=== PATIENT | female | born 1985 | race Caucasian/White ===

== ENCOUNTER 2018-01-21 07:09 | Emergency (ER) | payer OTHER, SELFPAY ==
[2018-01-21 07:20] VITALS: BP 163/99; PULSE 203; RESP 23; TEMP 36.7; O2SAT 100
--- NOTE | 2018-01-21 07:23 | ED.ARRPALP ---
HPI - Arrhythmia/Palpitations General Chief Complaint: Arrhythmia/Palpitations Stated Complaint: RAPID HEARTBEAT Time Seen by Provider: 01/21/18 07:16 Source: patient Mode of arrival: ambulatory Limitations: no limitations History of Present Illness HPI narrative: The patient is a 32-year-old female who presents with heart palpitations. She does have a history of anxiety but she said this is completely different. It started while she was driving she did have some chest pain when it started a little dizzy when it started but no shortness of breath. She now is feeling better. According nursing heart rate was in the 200s she bear down and heart rate has decreased to 108. She overall is feeling better. This has never happened to her in the past. Related Data Home Medications Medication Instructions Recorded Confirmed etonogestrel [Nexplanon] 68 mg INTRADERMAL #0 05/24/17 01/16/18 Previous Rx's Medication Instructions Recorded hydroxyzine pamoate 25 mg capsule 25 mg PO Q6-8H PRN #30 cap 01/16/18 sertraline 50 mg tablet 50 mg PO DAILY #30 tab 01/16/18 Allergies Allergy/AdvReac Type Severity Reaction Status Date / Time No Known Drug Allergies Allergy Verified 01/16/18 11:55 Review of Systems Review of Systems All systems reviewed & are unremarkable except as noted in HPI and below Constitutional Denies chills, Denies fever(s), Denies lethargy and Denies weakness Eyes Denies blurry vision Cardiovascular Reports as per HPI, Denies dyspnea and Denies dyspnea on exertion Respiratory Denies cough, Denies dyspnea, Denies dyspnea on exertion and Denies wheezing Gastrointestinal Gastrointestinal: Denies abdominal pain, Denies change in bowel habits, Denies diarrhea, Denies nausea and Denies vomiting Musculoskeletal Denies back pain, Denies muscle weakness, Denies numbness and Denies tingling Integumentary/Breasts Denies pruritus, Denies erythema, Denies rash and Denies wounds Neurologic Denies numbness, Denies tingling and Denies weakness Allergic/Immunologic Denies wheezing [facility] Medical History Healthy adult (Acute) Social History Smoking Status: Never smoker Exam Initial Vital Signs Initial Vital Signs: Vital Signs Temperature 98.0 F 01/21/18 07:20 Pulse Rate 203 H 01/21/18 07:20 Respiratory Rate 23 01/21/18 07:20 Blood Pressure 163/99 H 01/21/18 07:20 Pulse Oximetry 100 01/21/18 07:20 GENERAL: Well-appearing, well-nourished and in no acute distress. HEENT: Head atraumatic,EOMI, pupils reactive CARDIOVASCULAR: Regular rate and rhythm without murmurs, rubs or gallops. RESPIRATORY: Breath sounds equal bilaterally, no wheezes rales or rhonchi. ABDOMEN: Soft, nontender. Normoactive bowel sounds all 4 quadrants. No guarding or rebound. EXTREMITIES: Normal range of motion, no clubbing or edema. Neurovascularly intact NEUROLOGICAL: Alert and oriented x4.Normal gait and speech. Cranial nerves II through XII grossly intact. SKIN: Warm, dry, no laceration, no petechiae, no rashes or lesions. Course Orders Ordered: ED Orders 01/21/18 EKG-12 Lead Stat 01/21/18 07:21 Complete Blood Count AUTO DIFF Stat Comprehensive Metabolic Panel Stat Troponin & CK Cardiac Panel Stat 01/21/18 07:31 XR chest 1V Stat Discontinued Medications Sodium Chloride (Normal Saline 0.9%) 1,000 mls @ 1,000 mls/hr IV CONT VANESSA Last Admin: 01/21/18 07:39 Dose: 1,000 mls/hr Vital Signs - 8 hr 01/21/18 07:20 01/21/18 07:30 01/21/18 08:00 Temperature 98.0 F Pulse Rate 203 H 109 H 109 H Respiratory Rate 23 19 19 Blood Pressure 163/99 H Blood Pressure [Left Arm] 150/102 H 148/104 H Pulse Oximetry 100 99 97 01/21/18 08:30 Temperature Pulse Rate 104 H Respiratory Rate 19 Blood Pressure Blood Pressure [Left Arm] 153/102 H Pulse Oximetry 98 MDM - Arrhythmia/Palpitations Medical Records Attestation: I reviewed the patient's medical records. Lab Data Attestation: I reviewed the patient's lab results. Result diagrams: 01/21/18 07:21 01/21/18 07:21 Lab Results 01/21/18 01/21/18 Range/Units 07:21 07:21 WBC 8.9 (4.5-11.0) X10^3/uL RBC 5.07 (4.0-5.2) X10^6/uL Hgb 15.6 (12.0-16.0) g/dL Hct 44.5 (36-46) % MCV 87.7 (80-100) fL MCH 30.7 (26-34) PG MCHC 35.0 (30-36) % RDW 12.7 (11.6-14.8) % Plt Count 322 (150-400) X10^3/uL Neut % (Auto) 55.2 (50-75) % Lymph % (Auto) 28.9 (25-40) % [place] % (Auto) 9.3 (3-14) % Eos % (Auto) 5.5 H (2-4) % Baso % (Auto) 1.1 (0-2) % Neut # (Auto) 4900 (2677-6835) /uL Sodium 145 (137-145) mmol/L Potassium 4.0 (3.4-5.1) mmol/L Chloride 108 H (98-107) mmol/L Carbon Dioxide 22 (22-32) mmol/L BUN 9 (7-17) mg/dL Creatinine 0.70 (0.52-1.04) mg/dL Estimated GFR > 60.0 (>60) mL/min BUN/Creatinine Ratio 12.9 (6-22) Glucose 148 H (70-100) mg/dL Calcium 9.1 (8.4-10.2) mg/dL Total Bilirubin 1.1 (0.2-1.3) mg/dL AST 43 H (14-36) IU/L ALT 50 (9-52) IU/L Alkaline Phosphatase 101 (38-126) U/L Total Creatine Kinase 87 (30-135) U/L Troponin I 0.012 (0.01-0.034) ng/mL Total Protein 7.8 (6.3-8.2) g/dL Albumin 4.3 (3.5-5.0) g/dL Globulin 3.5 (1.7-4.1) g/dL Albumin/Globulin Ratio 1.2 (1.0-2.8) Imaging Data Chest x-ray: Radiologist's impression: [address] [address] XRay Report Signed Patient: Aleah Kiser MR#: [id number] : 1985 Acct:[id number] Age/Sex: 32 / F Date of Service: 01/21/18 Loc: Accession Number: [id number] Procedure: XR chest 1V Ordering Provider: Rafaela Tidwell D.O. PROCEDURE: XR CHEST 1V INDICATIONS: Chest pain. TECHNIQUE: One view of the chest was acquired. COMPARISON: None. FINDINGS: Surgical changes and devices: None. Lungs and pleura: No pleural effusions or pneumothorax. 7 mm nodular opacity projecting over the right lower lobe, between the posterior aspects of the right eighth and ninth ribs. Mediastinum: Mediastinal contours appear normal. Heart size is normal. Bones and chest wall: No suspicious bony lesions. Overlying soft tissues appear unremarkable. IMPRESSION: 7 mm nodular opacity projecting over the right lower lobe; this finding is nonspecific but may represent an early developing focus of infection, superimposed vascular structures, or a true pulmonary nodule. As no comparison imaging demonstrating this finding is available for review, recommend followup PA and lateral chest radiographs in 3 months to demonstrate stability. Dictated by: Grupo Valles M.D. on 01/21/2018 at 8:31 Approved by: Grupo Valles M.D. on 01/21/2018 at 8:40 ECG Data Attestation: I personally reviewed and interpreted this ECG as follows: Prior ECG tracings: not available for review Interpretation: Normal sinus rhythm rate 108 no ischemia MDM Narrative Medical decision making narrative: Patient has presumed SVT. Unfortunately we were not able to get her on the monitor before she converted. She is in sinus rhythm now tachycardic. Overall feeling better blood work within normal limits. Recommend she follow up with her primary care provider and possibly a crane operator cab. Discharge Plan Departure Patient Disposition: Home Clinical Impression: Nonsustained paroxysmal supraventricular tachycardia Discharge Date/Time: 01/21/18 08:46 Interventions: ED Discharge Assessment Last Done: 01/21/18 08:44 Instructions: Paroxysmal Supraventricular Tachycardia Activity Restrictions/Additional Instructions: *You have been diagnosed with supraventricular tachycardia *What to do: May require evaluation by crane operator cab please see her primary care provider about this. *Continue to take medications as directed *Follow up with your primary care provider in 2-3 days *Return to ER if you should have heart palpitations, chest pain, dizziness, shortness of breath or any new, worsening or concerning symptoms Prescriptions: No Action hydroxyzine pamoate 25 mg capsule 25 mg PO Q6-8H PRN (Reason: anxiety) Qty: 30 RF: 0 sertraline 50 mg tablet 50 mg PO DAILY Qty: 30 RF: 0 etonogestrel [Nexplanon] 68 MG implant 68 mg Intradermal Qty: 0 RF: 0 Referrals: Maia Rodrigues MD [Primary Care Provider] -
[2018-01-21 07:30] VITALS: BP 150/102; PULSE 109; RESP 19; O2SAT 99
--- NOTE | 2018-01-21 07:31 | DI.RAD.S_ITS ---
PROCEDURE: XR CHEST 1V INDICATIONS: Chest pain. TECHNIQUE: One view of the chest was acquired. COMPARISON: None. FINDINGS: Surgical changes and devices: None. Lungs and pleura: No pleural effusions or pneumothorax. 7 mm nodular opacity projecting over the right lower lobe, between the posterior aspects of the right eighth and ninth ribs. Mediastinum: Mediastinal contours appear normal. Heart size is normal. Bones and chest wall: No suspicious bony lesions. Overlying soft tissues appear unremarkable. IMPRESSION: 7 mm nodular opacity projecting over the right lower lobe; this finding is nonspecific but may represent an early developing focus of infection, superimposed vascular structures, or a true pulmonary nodule. As no comparison imaging demonstrating this finding is available for review, recommend followup PA and lateral chest radiographs in 3 months to demonstrate stability. Dictated by: Grupo Valles M.D. on 01/21/2018 at 8:31 Approved by: Grupo Valles M.D. on 01/21/2018 at 8:40
[2018-01-21] MEDS: SODIUM CHLORIDE 0.9% 1,000 ML 1000 ML IV (07:39)
[2018-01-21 07:40] LABS: Add Manual Diff / Slide Review NO; Basophils Percent Auto 1.1 % (0-2); Eosinophils Percent Auto 5.5 % (2-4); Hematocrit 44.5 % (36-46); Hemoglobin 15.6 g/dL (12.0-16.0); Lymphocytes Percent Auto 28.9 % (25-40); Mean Corpuscular Hemoglobin 30.7 PG (26-34); Mean Corpuscular Volume 87.7 fL (80-100); Monocytes Percent Auto 9.3 % (3-14); Neutrophils Absolute Auto 4900 /uL (3000-5900); Neutrophils Percent Auto 55.2 % (50-75); Platelet Count 322 X10^3/uL (150-400); Red Blood Cell Count 5.07 X10^6/uL (4.0-5.2); Red Cell Distribution Width 12.7 % (11.6-14.8); White Blood Cell Count 8.9 X10^3/uL (4.5-11.0)
[2018-01-21 07:51] LABS: Alanine Aminotransferase 50 IU/L (9-52); Albumin 4.3 g/dL (3.5-5.0); Albumin Globulin Ratio 1.2 (1.0-2.8); Alkaline Phosphatase 101 U/L (38-126); Aspartate Aminotransferase 43 IU/L (14-36); BUN Creatinine Ratio 12.9 (6-22); Bilirubin Total 1.1 mg/dL (0.2-1.3); Blood Urea Nitrogen 9 mg/dL (7-17); Calcium 9.1 mg/dL (8.4-10.2); Carbon Dioxide 22 mmol/L (22-32); Chloride 108 mmol/L (98-107); Creatine Kinase 87 U/L (30-135); Estimated Glomerular Filt Rate > 60.0 mL/min (>60); Globulin 3.5 g/dL (1.7-4.1); Glucose 148 mg/dL (70-100); HEMOLYSIS 75 (0-50); Sodium 145 mmol/L (137-145); Total Protein 7.8 g/dL (6.3-8.2)
[2018-01-21 08:00] VITALS: BP 148/104; PULSE 109; RESP 19; O2SAT 97
[2018-01-21 08:03] LABS: Troponin I 0.012 ng/mL (0.01-0.034)
[2018-01-21 08:30] VITALS: BP 153/102; PULSE 104; RESP 19; O2SAT 98
== END 2018-01-21 08:46 | disposition home or self-care (01) ==
PROVIDERS: Emergency Provider Emergency Medicine; Family Provider Family Medicine; PCP Family Medicine
DX: I47.1 Supraventricular tachycardia (principal)
CPT/HCPCS: 36591; 71045; 80053; 82550; 82553; 84484; 85025; 93005; 93010; 96360; 99283; 99285

== ENCOUNTER → 2018-01-25 08:06 | Outpatient (CLI) | payer OTHER, SELFPAY ==
--- NOTE | 2018-01-25 | DI.ECHO.S_ITS ---
[facility]---------+ [facility] +---------+ : : [address] : : : : [id number] : : : : Phone: [phone] Echocardiogram Report + + :Name: UMA ESTEBAN Study Date: 01/25/2018 Height: 62 in : :[facility] Exam Location: [facility] Weight: 238 lb : : Gender: Female BSA: 2.1 m2 : :: 1985 Age: 32 yrs BP: 148/95 mmHg: :Reason For Study: PSVT : : Performed By: Krish Martinez : :Referring: BEENA LINTON : + + Interpretation Summary The left ventricle is normal in size, wall thickness, and systolic function without any focal wall motion abnormalities with the ejection fraction visually estimated to be 60-65%. Assessment of diastolic parameters indicates normal left ventricular diastolic function and normal filling pressures. The right ventricle is normal in size and function. Pulmonary artery pressures cannot be estimated because of the lack of a measurable TR jet velocity but without IVC suggests a low right atrial pressure of 3 mm Hg. Both atria are normal in size. There is mild mitral regurgitation and mild tricuspid regurgitation but no other significant valvular heart disease. The ascending aorta is mildly enlarged. Procedure: A two-dimensional transthoracic echocardiogram with color flow and Doppler was performed. The study quality was technically adequate. There is no prior echocardiogram noted for this patient. The patient was in normal sinus rhythm during the exam. Left Ventricle: The left ventricle is normal in size, wall thickness, and systolic function without any focal wall motion abnormalities. The ejection fraction is estimated to be 60-65%. Assessment of diastolic parameters indicates normal left ventricular diastolic function and normal filling pressures. Right Ventricle: The right ventricle is normal in size and function. Atria: Both atria are normal in size. The interatrial septum is intact with no evidence for an atrial septal defect. Mitral Valve: The mitral valve leaflets appear normal. There is no evidence of stenosis, fluttering, or prolapse. There is mild mitral regurgitation. Aortic Valve: The aortic valve is trileaflet. The aortic valve opens well. No aortic regurgitation is present. Tricuspid Valve: The tricuspid valve is normal in structure and function. There is mild tricuspid regurgitation. Pulmonary artery pressures cannot be estimated because of the lack of a measurable TR jet velocity. Pulmonic Valve: The pulmonic valve is normal in structure and function. There is trace pulmonic regurgitation. There is no other significant valvular heart disease. Great Vessels: The aortic root is normal size. The ascending aorta is mildly enlarged. The pulmonary artery is normal size. The IVC is of normal diameter and collapses greater than 50% with a sniff. This suggests a low right atrial pressure of 3 mm Hg. Pericardium/ Pleura There is no pericardial effusion. There is no pleural effusion. MMode/2D Measurements & Calculations LVIDd: 4.4 cm Ao root diam: 2.7 cm LVIDs: 2.7 cm Aortic Jxn: 2.0 cm FS: 39.4 % asc Aorta Diam: 3.5 cm EPSS: 0.27 cm Ao Arch Diam (Prox Trans): 2.8 cm IVSd: 1.1 cm LVPWd: 1.0 cm LV alejo. diameter/BSA (cm/m^2): 2.1 LV sys. diameter/BSA (cm/m^2): 1.3 LA dimension: 3.2 cm RA long axis: 5.5 cm LA A2 area: 17.8 cm2 RA area: 16.0 cm2 LA A4 area: 21.6 cm2 RA vol: 39.8 ml LA length (vol): 5.5 cm RA : 19.4 ml/m2 LA vol: 59.3 ml IVC diam: 1.6 cm LA vol index: 28.8 ml/m2 Doppler Measurements & Calculations Ao V2 max: 139.6 cm/sec LVOT Max Dante: 95.7 cm/sec Ao V2 mean: 102.7 cm/sec LV V1 max P.7 mmHg Ao max P.8 mmHg LV V1 VTI: 19.9 cm Ao mean P.5 mmHg sev ratio: 0.70 Ao V2 VTI: 28.5 cm MV E max dante: 83.6 cm/sec PA V2 max: 83.0 cm/sec MV A max dante: 53.7 cm/sec PA V2 mean: 63.3 cm/sec MV E/A: 1.6 PA mean P.7 mmHg Med Peak E' Dante: 5.7 cm/sec PA pr(Accel): 49.1 mmHg E/E' med: 14.7 PA Accel Time: 0.06 sec Lat Peak E' Dante: 9.0 cm/sec E/E' lat: 9.3 E/e' average: 12.0 MV dec time: 0.22 sec Pulm A Revs Dante: 20.9 cm/sec Reading Physician:GLORIA
== END ==
PROVIDERS: Family Provider Family Medicine; PCP Family Medicine; Visit Provider Family Medicine
DX: I08.1 Rheumatic disorders of both mitral and tricuspid valves (principal); I47.1 Supraventricular tachycardia
CPT/HCPCS: 93306

== ENCOUNTER → 2018-11-12 16:54 | Outpatient (CLI) | payer OTHER, SELFPAY ==
[2018-11-12 17:46] LABS: HEMOLYSIS < 15 (0-50)
== END ==
PROVIDERS: PCP Family Medicine; Visit Provider Physician Assistant
DX: L70.0 Acne vulgaris (principal)
CPT/HCPCS: 36415; 84132

== ENCOUNTER 2019-07-30 17:22 | Emergency (ER) | payer OTHER, SELFPAY ==
[2019-07-30 17:31] VITALS: BP 148/100; PULSE 111; RESP 24; TEMP 37.2; O2SAT 98
[2019-07-30 17:50] LABS: Add Manual Diff / Slide Review NO; Basophils Absolute Auto 100 /uL (0-100); Basophils Percent Auto 0.7 % (0-2); Eosinophils Absolute Auto 300 /uL (0-450); Eosinophils Percent Auto 1.9 % (2-4); Hematocrit 45.6 % (36-46); Hemoglobin 15.5 g/dL (12.0-16.0); Lymphocytes Absolute Auto 2200 /uL (1100-4500); Lymphocytes Percent Auto 15.2 % (25-40); Mean Corpuscular HGB Conc 34.1 % (30-36); Mean Corpuscular Hemoglobin 30.6 PG (26-34); Mean Corpuscular Volume 89.6 fL (80-100); Monocytes Absolute Auto 1200 /uL (0-900); Monocytes Percent Auto 8.3 % (3-14); Neutrophils Absolute Auto 10900 /uL (1500-7000); Neutrophils Percent Auto 73.9 % (50-75); Platelet Count 354 X10^3/uL (150-400); Red Blood Cell Count 5.09 X10^6/uL (4.0-5.2); Red Cell Distribution Width 12.6 % (11.6-14.8); White Blood Cell Count 14.7 X10^3/uL (4.5-11.0)
[2019-07-30 18:10] LABS: Alanine Aminotransferase 37 IU/L (<35); Albumin Globulin Ratio 1.3 (1.0-2.8); Alkaline Phosphatase 118 U/L (38-126); Aspartate Aminotransferase 36 IU/L (14-36); Bilirubin Total 0.6 mg/dL (0.2-1.3); Blood Urea Nitrogen 9 mg/dL (7-17); Calcium 9.9 mg/dL (8.4-10.2); Carbon Dioxide 26 mmol/L (22-32); Chloride 101 mmol/L (98-107); Estimated Glomerular Filt Rate > 60.0 mL/min (>60); Globulin 3.9 g/dL (1.7-4.1); Glucose 123 mg/dL (70-100); HEMOLYSIS < 15 (0-50); Potassium 3.7 mmol/L (3.4-5.1); Sodium 141 mmol/L (137-145); Total Protein 8.9 g/dL (6.3-8.2)
--- NOTE | 2019-07-30 18:11 | ED.DIZZY ---
HPI - Dizziness General Chief Complaint: Dizziness Stated Complaint: wierd stuff going on Time Seen by Provider: 07/30/19 17:38 Source: patient Mode of arrival: Ambulatory Limitations: no limitations History of Present Illness HPI Narrative: 34F nonsmoker with migraines presents due to a sudden onset of feeling ?weird? about 5 hours prior to her arrival. She states she felt some palpitations and a bit lightheaded but is very nondescript regarding other symptoms. Patient denies any runny nose, sore throat or cough. She denies any fever or chills. She denies nausea, vomiting or diarrhea. She is a bit lightheaded on occasion. She denies any dysuria, frequency or urgency. She has had no abnormal vaginal bleeding or discharge. She denies recent travel, pain or swelling in her lower extremities or history of blood clot. MD complaint: dizziness and lightheadedness Onset (ago): hour(s) Timing: sudden onset History of similar episodes: Yes History of trauma: No Severity: mild Relieving factors: nothing Exacerbating factors: nothing Related Data Home Medications Medication Instructions Recorded Confirmed Nexplanon 68 mg INTRADERMAL .ONCE #0 05/24/17 07/30/19 spironolactone 25 mg tablet 25 mg PO BID 03/27/19 07/30/19 fluoxetine 20 mg PO QPM 07/30/19 07/30/19 Previous Rx's Medication Instructions Recorded dihydroergotamine 0.5 mg/pump act. 1 spray NASAL Q15M #8 ml 03/27/19 (4 mg/mL) nasal spray nortriptyline 50 mg capsule 50 mg PO BEDTIME #30 cap 05/06/19 fremanezumab-vfrm 225 mg/1.5 mL 225 mg SUBCUT QMONTH #1.5 ml 07/22/19 subcutaneous syringe propranolol 60 mg capsule,24 60 mg PO DAILY #30 cap 07/22/19 hr,extended release Allergies Allergy/AdvReac Type Severity Reaction Status Date / Time No Known Drug Allergies Allergy Verified 07/22/19 16:01 Review of Systems Constitutional Constitutional: Denies chills, Denies fatigue, Denies fever(s), Denies frequent falls, Denies lethargy and Denies weakness Eyes Eyes: Denies change in vision, Denies eye discharge, Denies irritation and Denies loss of vision ENT Ears, Nose, Mouth, and Throat: Denies change in voice, Denies dizziness, Denies neck pain, Denies sore throat and Denies throat swelling Cardiovascular Cardiovascular: Denies chest pain, Denies irregular heart rhythm, Reports lightheadedness, Reports palpitations, Denies dyspnea, Denies dyspnea on exertion and Denies orthopnea Respiratory Respiratory: Denies cough, Denies dyspnea, Denies dyspnea on exertion and Denies wheezing Gastrointestinal Gastrointestinal: Denies abdominal pain, Denies change in bowel habits, Denies diarrhea, Denies nausea and Denies vomiting Genitourinary Genitourinary: Denies hematuria, Denies flank pain, Denies urinary incontinence and Denies urinary urgency Musculoskeletal Musculoskeletal: Denies back pain, Denies muscle weakness, Denies neck pain, Denies numbness and Denies tingling Integumentary/Breasts Skin/Breast: Denies pruritus, Denies erythema, Denies rash and Denies wounds Neurologic Neurologic: Denies behavioral changes, Denies confusion, Denies dizziness, Denies frequent falls, Denies loss of vision, Denies numbness, Denies tingling and Denies weakness Psychiatric Psychiatric: Denies anxiety, Denies behavioral changes, Denies confusion, Denies depression, Denies homicidal ideation and Denies suicidal ideation Endocrine Endocrine: Denies fatigue, Denies flushing and Reports palpitations Hematologic/Lymphatic Hematologic/Lymphatic: Denies easy bruising Allergic/Immunologic Allergic/Immunologic: Denies urticaria, Denies throat swelling and Denies wheezing Patient History Medical History Healthy adult (Acute) Surgical History No pertinent past surgical history (Acute) Family History Father Hypertension Hyperlipidemia Diabetes mellitus Father Diabetes mellitus Hyperlipidemia Hypertension Social History Smoking Status: Never smoker Smoking Status: Never smoker alcohol intake frequency: 0-2 drinks per day Substance Use Type: does not use Exam Narrative Exam Narrative: GENERAL: [Is a 34] year old patient appears stated age. Well-nourished, well-developed patient, in mild distress. HEAD: Atraumatic. Normocephalic. EYES: Pupils equal round and reactive. Extraocular motions intact. No scleral icterus. No injection or drainage. ENT: Nose without bleeding, purulent drainage. Throat without erythema, tonsillar hypertrophy or exudate. Airway patent. NECK: Trachea midline. Non tender CARDIOVASCULAR: Regular rate and rhythm without murmurs, gallops, or rubs. RESPIRATORY: Clear to auscultation. Breath sounds equal bilaterally. No wheezes, rales, or rhonchi. GASTROINTESTINAL: Abdomen soft, non-tender, nondistended. EXTREMITIES: No edema or joint tenderness. BACK: Nontender without deformity or crepitance. No flank tenderness. NEURO: AOx3. SKIN: No rash or erythema of visible areas Initial Vital Signs Initial Vital Signs: Vital Signs Temperature 98.9 F 07/30/19 17:31 Pulse Rate 111 H 07/30/19 17:31 Respiratory Rate 24 07/30/19 17:31 Blood Pressure 148/100 H 07/30/19 17:31 Pulse Oximetry 98 07/30/19 17:31 Course Course Course Narrative: Patient feeling much better after the above-stated therapies. Her vital signs have normalized and she feels tremendous improvement. Multiple etiologies considered including PE, tachyarrhythmia and thyroid trouble considered, but thought less likely given the lack of lab findings. Orders Ordered: ED Orders 07/30/19 17:35 D Dimer Stat EKG-12 Lead Stat 07/30/19 17:39 Complete Blood Count AUTO DIFF Stat Comprehensive Metabolic Panel Stat Procalcitonin Stat Thyroid Stimulating Hormone Stat 07/30/19 21:25 Ictotest Urine Stat Urine Culture Stat Urine Drug Screen, Rapid Stat Urine Microscopic Stat Discontinued Medications Sodium Chloride (Normal Saline 0.9%) 1,000 mls @ 1,000 mls/hr IV BOLUS ONE Stop: 07/30/19 18:35 Last Infusion: 07/30/19 19:23 Dose: 1,000 mls/hr Documented by: Admin: 07/30/19 18:18 Dose: 1,000 mls/hr Documented by: HEMANT Sodium Chloride (Normal Saline 0.9%) 1,000 mls @ 1,000 mls/hr IV BOLUS ONE Stop: 07/30/19 21:09 Last Admin: 07/30/19 22:58 Dose: Not Given Documented by: KELSEY Ondansetron HCl (Zofran) 4 mg IV NOW ONE Stop: 07/30/19 17:36 Last Admin: 07/30/19 18:18 Dose: 4 mg Documented by: HEMANT Vital Signs Vital signs: Vital Signs - 8 hr 07/30/19 18:33 07/30/19 19:53 07/30/19 20:06 Pulse Rate 93 H 94 H Pulse Rate [Orthostatic Lying] 98 H Pulse Rate [Orthostatic Sitting] 86 Pulse Rate [Orthostatic Standing] 96 H Respiratory Rate 12 18 Blood Pressure Blood Pressure [Left Arm] 128/77 124/77 Blood Pressure [Orthostatic Lying] 120/73 Blood Pressure [Orthostatic Sitting] 127/82 Blood Pressure [Orthostatic Standing] 119/96 H Pulse Oximetry 99 100 07/30/19 21:24 07/30/19 23:06 Pulse Rate 87 88 Pulse Rate [Orthostatic Lying] Pulse Rate [Orthostatic Sitting] Pulse Rate [Orthostatic Standing] Respiratory Rate 23 22 Blood Pressure 124/76 Blood Pressure [Left Arm] Blood Pressure [Orthostatic Lying] Blood Pressure [Orthostatic Sitting] Blood Pressure [Orthostatic Standing] Pulse Oximetry 100 100 MDM - Dizziness Lab Data Result diagrams: 07/30/19 17:39 07/30/19 17:39 Labs: Lab Results 07/30/19 07/30/19 07/30/19 Range/Units 17:35 17:39 17:39 WBC 14.7 H (4.5-11.0) X10^3/uL RBC 5.09 (4.0-5.2) X10^6/uL Hgb 15.5 (12.0-16.0) g/dL Hct 45.6 (36-46) % MCV 89.6 (80-100) fL MCH 30.6 (26-34) PG MCHC 34.1 (30-36) % RDW 12.6 (11.6-14.8) % Plt Count 354 (150-400) X10^3/uL Neut % (Auto) 73.9 (50-75) % Lymph % (Auto) 15.2 L (25-40) % [place] % (Auto) 8.3 (3-14) % Eos % (Auto) 1.9 L (2-4) % Baso % (Auto) 0.7 (0-2) % Neut # (Auto) 24309 H (5156-4895) /uL Lymph # (Auto) 2200 (4155-9324) /uL [place] # (Auto) 1200 H (0-900) /uL Eos # (Auto) 300 (0-450) /uL Baso # (Auto) 100 (0-100) /uL D-Dimer < 200 (<230) ng/mL Sodium 141 (137-145) mmol/L Potassium 3.7 (3.4-5.1) mmol/L Chloride 101 (98-107) mmol/L Carbon Dioxide 26 (22-32) mmol/L BUN 9 (7-17) mg/dL Creatinine 0.60 (0.52-1.04) mg/dL Estimated GFR > 60.0 (>60) mL/min BUN/Creatinine Ratio 15.0 (6-22) Glucose 123 H (70-100) mg/dL Calcium 9.9 (8.4-10.2) mg/dL Total Bilirubin 0.6 (0.2-1.3) mg/dL AST 36 (14-36) IU/L ALT 37 H (<35) IU/L Alkaline Phosphatase 118 (38-126) U/L Total Protein 8.9 H (6.3-8.2) g/dL Albumin 5.0 (3.5-5.0) g/dL Globulin 3.9 (1.7-4.1) g/dL Albumin/Globulin Ratio 1.3 (1.0-2.8) Procalcitonin (<0.5) ng/mL TSH (0.47-4.68) uIU/mL Ur Bilirubin Confirm (Negative) Urine RBC (0-5/HPF) Urine WBC (0-5/HPF) Ur Squamous Epith Cells (0-5/HPF) Urine Bacteria (None) Ur Culture Indicated? U Opiates 300ng/mL cut (Negative) Ur Oxycodone Screen (Negative) Urine Methadone Screen (Negative) Ur Barbiturates Screen (Negative) U Tricyclic Antidepress (Negative) Ur Phencyclidine Scrn (Negative) Ur Amphetamines Screen (Negative) U Methamphetamines Scrn (Negative) Ur MDMA Scrn (Ecstasy) (Negative) U Benzodiazepines Scrn (Negative) Urine Cocaine Screen (Negative) U Marijuana (THC) Screen (Negative) 07/30/19 07/30/19 07/30/19 Range/Units 17:39 17:39 21:25 WBC (4.5-11.0) X10^3/uL RBC (4.0-5.2) X10^6/uL Hgb (12.0-16.0) g/dL Hct (36-46) % MCV (80-100) fL MCH (26-34) PG MCHC (30-36) % RDW (11.6-14.8) % Plt Count (150-400) X10^3/uL Neut % (Auto) (50-75) % Lymph % (Auto) (25-40) % [place] % (Auto) (3-14) % Eos % (Auto) (2-4) % Baso % (Auto) (0-2) % Neut # (Auto) (2937-2226) /uL Lymph # (Auto) (7473-3800) /uL [place] # (Auto) (0-900) /uL Eos # (Auto) (0-450) /uL Baso # (Auto) (0-100) /uL D-Dimer (<230) ng/mL Sodium (137-145) mmol/L Potassium (3.4-5.1) mmol/L Chloride (98-107) mmol/L Carbon Dioxide (22-32) mmol/L BUN (7-17) mg/dL Creatinine (0.52-1.04) mg/dL Estimated GFR (>60) mL/min BUN/Creatinine Ratio (6-22) Glucose (70-100) mg/dL Calcium (8.4-10.2) mg/dL Total Bilirubin (0.2-1.3) mg/dL AST (14-36) IU/L ALT (<35) IU/L Alkaline Phosphatase (38-126) U/L Total Protein (6.3-8.2) g/dL Albumin (3.5-5.0) g/dL Globulin (1.7-4.1) g/dL Albumin/Globulin Ratio (1.0-2.8) Procalcitonin < 0.05 (<0.5) ng/mL TSH 1.39 (0.47-4.68) uIU/mL Ur Bilirubin Confirm (Negative) Urine RBC (0-5/HPF) Urine WBC (0-5/HPF) Ur Squamous Epith Cells (0-5/HPF) Urine Bacteria (None) Ur Culture Indicated? U Opiates 300ng/mL cut Negative (Negative) Ur Oxycodone Screen Negative (Negative) Urine Methadone Screen Negative (Negative) Ur Barbiturates Screen Negative (Negative) U Tricyclic Antidepress Positive H (Negative) Ur Phencyclidine Scrn Negative (Negative) Ur Amphetamines Screen Negative (Negative) U Methamphetamines Scrn Negative (Negative) Ur MDMA Scrn (Ecstasy) Negative (Negative) U Benzodiazepines Scrn Negative (Negative) Urine Cocaine Screen Negative (Negative) U Marijuana (THC) Screen Negative (Negative) 07/30/19 07/30/19 Range/Units 21:25 21:25 WBC (4.5-11.0) X10^3/uL RBC (4.0-5.2) X10^6/uL Hgb (12.0-16.0) g/dL Hct (36-46) % MCV (80-100) fL MCH (26-34) PG MCHC (30-36) % RDW (11.6-14.8) % Plt Count (150-400) X10^3/uL Neut % (Auto) (50-75) % Lymph % (Auto) (25-40) % [place] % (Auto) (3-14) % Eos % (Auto) (2-4) % Baso % (Auto) (0-2) % Neut # (Auto) (2246-2575) /uL Lymph # (Auto) (4934-3620) /uL [place] # (Auto) (0-900) /uL Eos # (Auto) (0-450) /uL Baso # (Auto) (0-100) /uL D-Dimer (<230) ng/mL Sodium (137-145) mmol/L Potassium (3.4-5.1) mmol/L Chloride (98-107) mmol/L Carbon Dioxide (22-32) mmol/L BUN (7-17) mg/dL Creatinine (0.52-1.04) mg/dL Estimated GFR (>60) mL/min BUN/Creatinine Ratio (6-22) Glucose (70-100) mg/dL Calcium (8.4-10.2) mg/dL Total Bilirubin (0.2-1.3) mg/dL AST (14-36) IU/L ALT (<35) IU/L Alkaline Phosphatase (38-126) U/L Total Protein (6.3-8.2) g/dL Albumin (3.5-5.0) g/dL Globulin (1.7-4.1) g/dL Albumin/Globulin Ratio (1.0-2.8) Procalcitonin (<0.5) ng/mL TSH (0.47-4.68) uIU/mL Ur Bilirubin Confirm Negative Cancelled (Negative) Urine RBC None seen (0-5/HPF) Urine WBC 0-1/hpf (0-5/HPF) Ur Squamous Epith Cells 0-1 /hpf (0-5/HPF) Urine Bacteria Many (>30) H (None) Ur Culture Indicated? Specimen cultured U Opiates 300ng/mL cut (Negative) Ur Oxycodone Screen (Negative) Urine Methadone Screen (Negative) Ur Barbiturates Screen (Negative) U Tricyclic Antidepress (Negative) Ur Phencyclidine Scrn (Negative) Ur Amphetamines Screen (Negative) U Methamphetamines Scrn (Negative) Ur MDMA Scrn (Ecstasy) (Negative) U Benzodiazepines Scrn (Negative) Urine Cocaine Screen (Negative) U Marijuana (THC) Screen (Negative) Point of Care Testing Test Results Negative Urine Dip Bedside Urine Glucose Negative Bedside Urine Bilirubin + 1 Bedside Urine Ketone +/- 5 Urine Specific [place] 1.02 Bedside Urine Occult Blood - Negative Bedside Urine pH 6.0 Bedside Urine Protein +/- 15 Bedside Urine Urobilinogen - Negative Bedside Urine Nitrite + Positive Bedside Urine Leukocytes - Negative Esterase Discharge Plan Departure Patient Disposition: Home Clinical Impression: Acute dehydration, Dizziness Discharge Date/Time: 07/30/19 23:06 Instructions: DI for Dehydration -- Adult Activity Restrictions/Additional Instructions: *You have been diagnosed with [acute dehydration with dizziness] *What to do: *Take medications as directed *Follow up with your primary care provider in 2-3 days, call for an appointment. Let them know you were seen in the Emergency Department and that we ask that you be seen in follow up *Return to ER if you should have any new, worsening or concerning symptoms Prescriptions: No Action Nexplanon 68 MG implant 68 mg Intradermal .ONCE Qty: 0 RF: 0 fluoxetine 20 mg capsule 20 mg PO QPM RF: 0 nortriptyline 50 mg capsule 50 mg PO BEDTIME Qty: 30 RF: 5 spironolactone 25 mg tablet 25 mg PO BID RF: 0 dihydroergotamine [Migranal] 0.5 mg/pump act. (4 mg/mL) spray,non-aerosol 1 spray NASAL Q15M Qty: 8 RF: 2 propranolol 60 mg capsule,extended release 24 hr 60 mg PO DAILY Qty: 30 RF: 5 Ajovy 225 mg/1.5 mL syringe 225 mg SUBCUT QMONTH Qty: 1.5 RF: 12 Referrals: Maia Rodrigues MD [Primary Care Provider] -
[2019-07-30] MEDS: ONDANSETRON 4 MG/2 ML INJ IV (18:18)
[2019-07-30] MEDS: SODIUM CHLORIDE 0.9% 1,000 ML 1000 ML IV (18:18)
[2019-07-30 18:33] VITALS: BP 128/77; PULSE 93; RESP 12; O2SAT 99
--- NOTE | 2019-07-30 18:34 | PC.NURSE ---
patient has no chest pain and hasn't had any. [place] faint and hot and cold today. [place] a little dizzy. Only change in medication is an injection for her migraines that she started last week and it is only once a week.
[2019-07-30 18:47] LABS: Thyroid Stimulating Hormone 1.39 uIU/mL (0.47-4.68)
[2019-07-30 19:06] LABS: D Dimer < 200 ng/mL (<230)
[2019-07-30 19:53] VITALS: BP 119/96; BP 120/73; BP 127/82; PULSE 86; PULSE 96; PULSE 98
[2019-07-30 20:01] LABS: Procalcitonin < 0.05 ng/mL (<0.5)
[2019-07-30 20:06] VITALS: BP 124/77; PULSE 94; RESP 18; O2SAT 100
[2019-07-30 21:24] VITALS: PULSE 87; RESP 23; O2SAT 100
[2019-07-30 22:01] LABS: UR Morphine/Opiate cutoff 300 Negative (Negative); Ur Creatinine Normal (Normal); Ur Specific Gravity Normal (Normal); Urine Amphetamines Negative (Negative); Urine Barbiturates Negative (Negative); Urine Benzodiazepines Negative (Negative); Urine Cocaine Negative (Negative); Urine MDMA Negative (Negative); Urine Methadone Negative (Negative); Urine Methamphetamines Negative (Negative); Urine Oxycodone Negative (Negative); Urine Phencyclidine Negative (Negative); Urine Tetrahydrocannabinol Negative (Negative); Urine Tricyclic Antidepressant Positive (Negative); Urine pH Normal (Normal)
[2019-07-30 22:21] LABS: RBC Urine None Seen (0-5/HPF)
[2019-07-30 22:39] LABS: Ictotest Urine Negative (Negative); Squamous Epithelial Cell Urine 0-1 /HPF (0-5/HPF); WBC Urine 0-1/HPF (0-5/HPF)
[2019-07-30 22:40] LABS: Bacteria Urine Many (>30)
[2019-07-30 22:41] LABS: Culture Indicated Urine Specimen Cultured
[2019-07-30 23:06] VITALS: BP 124/76; PULSE 88; RESP 22; O2SAT 100
== END 2019-07-30 23:06 | disposition home or self-care (01) ==
PROVIDERS: Emergency Medicine; Emergency Provider Emergency Medicine; PCP Family Medicine
DX: E86.0 Dehydration (principal); R42 Dizziness and giddiness
CPT/HCPCS: 36415; 80053; 80305; 81003; 81015; 81025; 84145; 84443; 85025; 85379; 87077; 87086; 87186; 93005; 93010; 96361; 96374; 99284; J2405

== ENCOUNTER → 2019-08-10 09:40 | Outpatient (CLI) | payer OTHER, SELFPAY ==
[2019-08-10 09:57] LABS: Add Manual Diff / Slide Review NO; Basophils Absolute Auto 100 /uL (0-100); Basophils Percent Auto 1.2 % (0-2); Eosinophils Absolute Auto 200 /uL (0-450); Hematocrit 42.8 % (36-46); Hemoglobin 14.3 g/dL (12.0-16.0); Lymphocytes Absolute Auto 1800 /uL (1100-4500); Lymphocytes Percent Auto 25.5 % (25-40); Mean Corpuscular HGB Conc 33.5 % (30-36); Mean Corpuscular Hemoglobin 30.4 PG (26-34); Mean Corpuscular Volume 90.9 fL (80-100); Monocytes Absolute Auto 500 /uL (0-900); Monocytes Percent Auto 7.1 % (3-14); Neutrophils Absolute Auto 4500 /uL (1500-7000); Neutrophils Percent Auto 63.2 % (50-75); Platelet Count 295 X10^3/uL (150-400); Red Blood Cell Count 4.71 X10^6/uL (4.0-5.2); Red Cell Distribution Width 12.7 % (11.6-14.8)
[2019-08-10 10:10] LABS: Alanine Aminotransferase 35 IU/L (<35); Albumin 4.4 g/dL (3.5-5.0); Albumin Globulin Ratio 1.3 (1.0-2.8); Alkaline Phosphatase 101 U/L (38-126); Aspartate Aminotransferase 29 IU/L (14-36); BUN Creatinine Ratio 16.4 (6-22); Bilirubin Total 0.8 mg/dL (0.2-1.3); Blood Urea Nitrogen 11 mg/dL (7-17); Calcium 9.3 mg/dL (8.4-10.2); Carbon Dioxide 26 mmol/L (22-32); Chloride 108 mmol/L (98-107); Estimated Glomerular Filt Rate > 60.0 mL/min (>60); Globulin 3.3 g/dL (1.7-4.1); Glucose 98 mg/dL (70-100); HEMOLYSIS < 15 (0-50); Potassium 4.6 mmol/L (3.4-5.1); Sodium 140 mmol/L (137-145); Total Protein 7.7 g/dL (6.3-8.2)
[2019-08-10 11:47] LABS: Thyroid Stimulating Hormone 0.93 uIU/mL (0.47-4.68)
== END ==
PROVIDERS: PCP Family Medicine; Referring Provider Physician Assistant; Visit Provider Physician Assistant
DX: R23.2 Flushing (principal)
CPT/HCPCS: 36415; 80053; 84443; 85025

== ENCOUNTER → 2020-02-10 17:03 | Outpatient (CLI) | payer OTHER, SELFPAY ==
--- NOTE | 2020-02-10 | DI.US.S_ITS ---
PROCEDURE: US EXTREMELY NONVASC UPPER RT INDICATIONS: superficial foreign body of right upper arm TECHNIQUE: Real-time scanning was performed of the right mid arm, with image documentation. Color Doppler imaging was also employed. COMPARISON: None. FINDINGS: Scanning is performed at the area of clinical concern involving the right mid arm. No foreign bodies are seen. The implanted device is not seen. No abnormal vascularity can be seen. IMPRESSION: No implanted devices can be seen within the right mid arm. Dictated by: Carlos Burton M.D. on 02/10/2020 at 17:55 Approved by: Carlos Burton M.D. on 02/10/2020 at 17:56
== END ==
PROVIDERS: PCP Family Medicine; Referring Provider Student in an Organized Health Care Education/Training Program; Visit Provider Student in an Organized Health Care Education/Training Program
DX: S40.851A Superficial foreign body of right upper arm, initial encounter (principal)
CPT/HCPCS: 76882

== ENCOUNTER → 2020-02-19 17:41 | Outpatient (CLI) | payer OTHER, SELFPAY ==
--- NOTE | 2020-02-19 | DI.RAD.S_ITS ---
PROCEDURE: XR CHEST 2V INDICATIONS: MIGRATING NEXPLANON TECHNIQUE: 2 views of the chest were acquired. COMPARISON: [facility], CR, XR CHEST 1V, 01/21/2018, 7:45. FINDINGS: Surgical changes and devices: None. Lungs and pleura: Lungs are clear. No pleural effusions or pneumothorax. Calcified granuloma, right middle lobe. Mediastinum: Mediastinal contours are normal. Heart size is normal. Bones and chest wall: No suspicious bony abnormalities. Soft tissues appear unremarkable. IMPRESSION: No evidence acute pulmonary process. Dictated by: Nael Michaels M.D. on 02/19/2020 at 21:33 Approved by: Nael Michaels M.D. on 02/19/2020 at 21:34
== END ==
PROVIDERS: PCP Family Medicine; Referring Provider Family Medicine; Visit Provider Family Medicine
DX: Z30.46 Encounter for surveillance of implantable subdermal contraceptive (principal)
CPT/HCPCS: 71046

== ENCOUNTER → 2020-02-27 16:40 | Outpatient (CLI) | payer OTHER, SELFPAY ==
--- NOTE | 2020-02-27 16:42 | DI.RAD.S_ITS ---
PROCEDURE: XR HUMERUS RT 2V INDICATIONS: NEXPLANON PLACEMENT TECHNIQUE: 2 views of the humerus were acquired. COMPARISON: None. FINDINGS: Bones: No fractures or dislocations. No suspicious bony lesions. Soft tissues: No suspicious soft tissue calcifications. IMPRESSION: No trauma found. Subcutaneous linear foreign body noted ventral to the biceps muscle on the lateral view. Dictated by: Stephen John M.D. on 02/27/2020 at 17:09 Approved by: Stephen John M.D. on 02/27/2020 at 17:11
== END ==
PROVIDERS: PCP Family Medicine; Referring Provider Family Medicine; Visit Provider Family Medicine
DX: Z30.46 Encounter for surveillance of implantable subdermal contraceptive (principal)
CPT/HCPCS: 73060

== ENCOUNTER → 2020-04-30 16:10 | Outpatient (CLI) | payer OTHER, SELFPAY ==
--- NOTE | 2020-04-30 | DI.RAD.S_ITS ---
PROCEDURE: XR RIBS RT 2V INDICATIONS: CHEST/ RT RIB TECHNIQUE: 2 views of the right ribs were acquired. COMPARISON: None. FINDINGS: Surgical changes and devices: None. Bones and chest wall: Right lateral 8th rib fracture. Lungs and pleura: The visualized lung appears clear. No pleural effusions or pneumothorax are visible. Calcified granuloma projects in the right lung base. 2 IMPRESSION: Right lateral 8th rib fracture, mildly displaced. Dictated by: Abhi Rodrigues M.D. on 04/30/2020 at 16:58 Approved by: Abhi Rodrigues M.D. on 04/30/2020 at 17:00
--- NOTE | 2020-04-30 | DI.RAD.S_ITS ---
PROCEDURE: XR CHEST 2V INDICATIONS: CHEST/ RT RIB TECHNIQUE: 2 views of the chest were acquired. COMPARISON: [facility], CR, XR CHEST 2V, 02/19/2020, 17:34. FINDINGS: Surgical changes and devices: None. Lungs and pleura: Lungs are clear. No pleural effusions or pneumothorax. Mediastinum: Mediastinal contours are normal. Heart size is normal. Bones and chest wall: No suspicious bony abnormalities. Soft tissues appear unremarkable. IMPRESSION: No acute disease. Dictated by: Abhi Rodrigues M.D. on 04/30/2020 at 17:00 Approved by: Abhi Rodrigues M.D. on 04/30/2020 at 17:01
== END ==
PROVIDERS: PCP Family Medicine; Referring Provider Family Medicine; Visit Provider Family Medicine
DX: R07.89 Other chest pain (principal); R07.81 Pleurodynia; S22.32XA Fracture of one rib, left side, initial encounter for closed fracture
CPT/HCPCS: 71046; 71100

== ENCOUNTER → 2021-03-09 15:57 | Outpatient (CLI) | payer OTHER, SELFPAY ==
--- NOTE | 2021-03-09 | DI.RAD.S_ITS ---
PROCEDURE: XR RIBS RT 2V INDICATIONS: RIGHT SIDED RIB PAIN TECHNIQUE: 2 views of the right ribs were acquired. COMPARISON: [facility], CR, XR RIBS RT 2V, 04/30/2020, 16:27. FINDINGS: Surgical changes and devices: None. Bones and chest wall: No fractures or dislocations. No suspicious bony lesions. Overlying soft tissues appear unremarkable. Lungs and pleura: The visualized lung appears clear. No pleural effusions or pneumothorax are visible. IMPRESSION: No acute fracture. No osseous lesion. If symptoms and/or clinical suspicion for pathology persist, further assessment with repeat, or advanced imaging (e.g., CT or bone scan) may be helpful for further assessment. Dictated by: Shani Lemus M.D. on 03/09/2021 at 16:57 Approved by: Shani Lemus M.D. on 03/09/2021 at 16:57
== END ==
PROVIDERS: PCP Family Medicine; Referring Provider Family Medicine; Visit Provider Family Medicine
DX: R07.81 Pleurodynia (principal)
CPT/HCPCS: 71100

== ENCOUNTER → 2022-06-03 09:09 | Outpatient (CLI) | payer OTHER, SELFPAY ==
[2022-06-03 10:15] LABS: Add Manual Diff / Slide Review NO; Basophils Absolute Auto 100 /uL (0-100); Basophils Percent Auto 0.9 % (0-2); Eosinophils Absolute Auto 100 /uL (0-450); Eosinophils Percent Auto 1.7 % (2-4); Hematocrit 41.6 % (36-46); Hemoglobin 13.9 g/dL (12.0-16.0); Lymphocytes Absolute Auto 2000 /uL (1100-4500); Lymphocytes Percent Auto 25.2 % (25-40); Mean Corpuscular HGB Conc 33.3 % (30-36); Mean Corpuscular Hemoglobin 28.2 PG (26-34); Mean Corpuscular Volume 84.8 fL (80-100); Monocytes Absolute Auto 500 /uL (0-900); Monocytes Percent Auto 6.4 % (3-14); Neutrophils Absolute Auto 5200 /uL (1500-7000); Neutrophils Percent Auto 65.8 % (50-75); Platelet Count 310 X10^3/uL (150-400); Red Blood Cell Count 4.91 X10^6/uL (4.0-5.2); Red Cell Distribution Width 13.1 % (11.6-14.8); White Blood Cell Count 7.9 X10^3/uL (4.5-11.0)
[2022-06-03 10:16] LABS: Hemoglobin A1C% w Est Avg Glu 5.4 % (4.0-6.0)
[2022-06-03 10:45] LABS: Alanine Aminotransferase 31 IU/L (<35); Albumin 4.4 g/dL (3.5-5.0); Albumin Globulin Ratio 1.4 (1.0-2.8); Alkaline Phosphatase 114 U/L (38-126); Aspartate Aminotransferase 25 IU/L (14-36); BUN Creatinine Ratio 16.9 (6-22); Bilirubin Total 0.8 mg/dL (0.2-1.3); Blood Urea Nitrogen 11 mg/dL (7-17); C-Reactive Protein Quant < 0.5 mg/dL (<1.0); Calcium 9.2 mg/dL (8.4-10.2); Carbon Dioxide 24 mmol/L (22-32); Chloride 105 mmol/L (98-107); Cholesterol 203 mg/dL (140-199); Estimated Glomerular Filt Rate > 60 mL/min (>60); Globulin 3.2 g/dL (1.7-4.1); Glucose 86 mg/dL (70-100); HDL Cholesterol 55 mg/dL (40-60); HEMOLYSIS < 15 (0-50); LDL Cholesterol Calculated 123 mg/dL (<100); Potassium 4.3 mmol/L (3.4-5.1); Sodium 138 mmol/L (137-145); Total Protein 7.6 g/dL (6.3-8.2); Triglycerides 126 mg/dL (35-150)
[2022-06-03 10:55] LABS: Erythrocyte Sedimentation Rate 12 MM/HR (0-20)
[2022-06-03 11:08] LABS: TSH w/ Reflex to FT4 0.87 uIU/mL (0.47-4.68)
== END ==
PROVIDERS: PCP Family Medicine; Referring Provider Family Medicine; Visit Provider Family Medicine
DX: I10 Essential (primary) hypertension (principal); G43.909 Migraine, unspecified, not intractable, without status migrainosus; F32.1 Major depressive disorder, single episode, moderate; F41.9 Anxiety disorder, unspecified; F41.0 Panic disorder [episodic paroxysmal anxiety]; I47.1 Supraventricular tachycardia
CPT/HCPCS: 36415; 80053; 80061; 83036; 84443; 85025; 85651; 86140

== ENCOUNTER 2022-06-09 11:43 | Emergency (ER) | payer OTHER, SELFPAY ==
[2022-06-09] VITALS (18 sets, daily range): BP systolic 156–194; BP diastolic 94–119; PULSE 78–95; RESP 14–21; TEMP 36.6; O2SAT 94–100; BMI 42.7
--- NOTE | 2022-06-09 12:49 | DI.RAD.S_ITS ---
PROCEDURE: XR CHEST 1V INDICATIONS: chest pain TECHNIQUE: One view of the chest was acquired. COMPARISON: [facility], CR, XR CHEST 2V, 04/30/2020, 16:27. FINDINGS: Surgical changes and devices: None. Lungs and pleura: Calcified granuloma is seen in right lower lung field. No focal infiltrate. No pleural effusions or pneumothorax. Mediastinum: Mediastinal contours appear normal. Heart size is normal. Bones and chest wall: No suspicious bony lesions. Overlying soft tissues appear unremarkable. IMPRESSION: No acute cardiopulmonary pathology. Dictated by: Wing Dickinson M.D. on 06/09/2022 at 13:23 Approved by: Wing Dickinson M.D. on 06/09/2022 at 13:24
[2022-06-09 13:57] LABS: Add Manual Diff / Slide Review NO; Basophils Absolute Auto 100 /uL (0-100); Basophils Percent Auto 0.6 % (0-2); Eosinophils Absolute Auto 200 /uL (0-450); Hematocrit 42.5 % (36-46); Hemoglobin 14.2 g/dL (12.0-16.0); Lymphocytes Absolute Auto 2200 /uL (1100-4500); Lymphocytes Percent Auto 24.7 % (25-40); Mean Corpuscular HGB Conc 33.4 % (30-36); Mean Corpuscular Hemoglobin 28.4 PG (26-34); Mean Corpuscular Volume 84.8 fL (80-100); Monocytes Absolute Auto 700 /uL (0-900); Monocytes Percent Auto 7.6 % (3-14); Neutrophils Absolute Auto 5900 /uL (1500-7000); Neutrophils Percent Auto 65.1 % (50-75); Platelet Count 355 X10^3/uL (150-400)
[2022-06-09 13:58] LABS: INR 1.1 (0.9-1.3); Prothrombin Time 12.3 SECONDS (10.1-12.7)
[2022-06-09 14:00] LABS: PTT Partial Thromboplastin Tim 32 SECONDS (26-36)
[2022-06-09 14:03] LABS: Alanine Aminotransferase 35 IU/L (<35); Albumin 4.6 g/dL (3.5-5.0); Albumin Globulin Ratio 1.2 (1.0-2.8); Alkaline Phosphatase 106 U/L (38-126); Aspartate Aminotransferase 30 IU/L (14-36); BUN Creatinine Ratio 18.6 (6-22); Bilirubin Total 0.8 mg/dL (0.2-1.3); Blood Urea Nitrogen 11 mg/dL (7-17); Calcium 9.2 mg/dL (8.4-10.2); Carbon Dioxide 24 mmol/L (22-32); Chloride 104 mmol/L (98-107); Creatine Kinase 50 U/L (30-135); Estimated Glomerular Filt Rate > 60 mL/min (>60); Globulin 3.7 g/dL (1.7-4.1); Glucose 107 mg/dL (70-100); HEMOLYSIS < 15 (0-50); Lipase 170 U/L (23-300); Magnesium 2.2 mg/dL (1.6-2.3); Potassium 3.8 mmol/L (3.4-5.1); Sodium 140 mmol/L (137-145); Total Protein 8.3 g/dL (6.3-8.2)
[2022-06-09 14:12] LABS: Troponin I < 0.012 ng/mL (0.01-0.034)
[2022-06-09 14:15] LABS: Influenza A - CEPHEID Flu A NEGATIVE (NEGATIVE); Influenza B - CEPHEID Flu B NEGATIVE (NEGATIVE); Respiratory Syncytial Virus Negative (Negative)
[2022-06-09 14:16] LABS: COVID-19 CEPHEID 4-PLEX PCR Negative (Negative)
--- NOTE | 2022-06-09 17:06 | ED_ITS ---
HPI - General Adult <MEHDI Easley - Last Filed: 06/09/22 19:21> General Chief complaint: Hypertension Stated complaint: HBP 8am was 175/140; tired, weak, headache Time Seen by Provider: 06/09/22 13:11 Source: patient Mode of arrival: Ambulatory History of Present Illness HPI narrative: This is a 37-year-old female who was recently diagnosed with hypertension started on 5 mg amlodipine daily who presents to the emergency department complaining of headache, dizziness, chest pain with shortness of breath started this morning with hypertension at 175/140 after she took her amlodipine. She was recently started on amlodipine 1 week ago by her primary care provider 5 mg each day. She took this morning. She states that she is been more tired than usual over the last 2 days, felt like she had low energy, has a history of migraines and states that she is had a headache for the last 3 days. She endor ses chest pain with exertional activity, states it is sharp, has history of heartburn and states more often recently without nausea or vomiting, diaphoresis, radiation, or diarrhea. States this has been coming and going over the last 4 days. Has congestion without a cough, afebrile, no nausea, vomiting diarrhea. No vision changes, no weakness, no dizziness. Related Data Home Medications Medication Instructions Recorded Confirmed amlodipine 5 mg tablet 5 mg PO QAM 06/09/22 06/09/22 aspirin 81 mg tablet 81 mg PO DAILY 06/09/22 06/09/22 galcanezumab-gnlm 120 mg/mL 120 mg SUBCUT QMONTH 06/09/22 06/09/22 subcutaneous pen injector (Emgality Pen) Previous Rx's Medication Instructions Recorded amlodipine 10 mg tablet 10 mg PO DAILY #30 tabs 06/09/22 Allergies Allergy/AdvReac Type Severity Reaction Status Date / Time No Known Drug Allergies Allergy Verified 06/09/22 12:46 Review of Systems <MEHDI Easley - Last Filed: 06/09/22 19:21> Review of Systems ROS Unobtainable: All systems reviewed & are unremarkable except as noted in HPI and below Patient History <MEHDI Easley - Last Filed: 06/09/22 19:21> Medical History Cervical somatic dysfunction Chronic neck pain with normal neurological examination Cranial somatic dysfunction Healthy adult Lumbar region somatic dysfunction Neck stiffness Pelvic somatic dysfunction Sacral region somatic dysfunction Segmental and somatic dysfunction of abdomen and other regions Stiffness of sacroiliac joint Thoracic region somatic dysfunction Surgical History No pertinent past surgical history Family History Father Hypertension Hyperlipidemia Diabetes mellitus Mother Diabetes mellitus Hyperlipidemia Hypertension Social History Smoking Status: Never smoker Smoking Status: Never smoker alcohol intake frequency: 0-2 drinks per day Substance Use Type: does not use Exam <MEHDI Easley - Last Filed: 06/09/22 19:21> Narrative Exam Narrative: Reviewed vitals signs and nursing notes. General: cooperative, comfortable, in no acute distress, well groomed HEENT: symmetrical facial expressions, dry mucous membranes Cardiovascular: regular rate and rhythm, no peripheral edema, warm extremities, no murmur, gallop, rub, without carotid bruit bilaterally, Respiratory: normal effort, able to speak in complete sentences, without wheezing, stridor, or abnormal breath sounds. No retractions or tachypnea. GI: abdomen soft, nontender to palpation, nondistended, without masses, rebound tenderness or exquisite tenderness with exam. MSK: moves all extremities, neurovascularly intact, no weakness, normal tone Skin: brisk capillary refill, without pallor or erythema Neuro: normal speech and cognition, A&O x3, ambulatory, clear speech Psych: mental status is grossly normal, congruent mood, normal affect, pleasant and cooperative Initial Vital Signs Initial Vital Signs: Vital Signs Temperature 97.8 F 06/09/22 12:41 Pulse Rate 87 06/09/22 12:41 Respiratory Rate 14 06/09/22 12:41 Blood Pressure 185/119 H 06/09/22 12:41 Pulse Oximetry 99 06/09/22 12:41 Oxygen Delivery Method 06/09/22 12:41 <Promise Lucas DO - Last Filed: 06/11/22 06:55> Initial Vital Signs Initial Vital Signs: Vital Signs Temperature 97.8 F 06/09/22 12:41 Pulse Rate 87 06/09/22 12:41 Respiratory Rate 14 06/09/22 12:41 Blood Pressure 185/119 H 06/09/22 12:41 Pulse Oximetry 99 06/09/22 12:41 Oxygen Delivery Method 06/09/22 12:41 Scores <MEHDI Easley - Last Filed: 06/09/22 19:21> HEART Score Heart Score history: Slightly Suspicious Heart Score EKG: Normal Heart Score Age: < 45 years old Heart Score risk factors: 1-2 risk factors Heart Score troponin: < or = to normal limit Heart Score Total: 1 PERC Score Age greater than or equal to 50 years: No Heart rate greater than or equal to 100 bpm: No Room Air O2 Sat less than 95%: No Unilateral leg swelling: No Recent trauma or surgery: No Hemoptysis: No Prior PE or DVT: No Hormone Use: No Total PERC Score: 0 Wells' Criteria for DVT Active Cancer (Treatment within 6 months): No Bedridden recently >3 days or major surgery within 4 weeks: No Calf Swelling >3cm compared to other leg: No Collateral (nonvericose) superficial veins present: No Entire leg swollen: No Localized tenderness along the deep vein system: No Pitting edema, confined to symtomatic leg: No Paralysis, paresis, or recent plaster immobilization of ext: No Previously documented DVT: No Alternative dx to DVT as likely or more likely: No Adrian criteria for DVT: 0 <Promise Lucas DO - Last Filed: 06/11/22 06:55> HEART Score Heart Score Total: 1 PERC Score Total PERC Score: 0 Wells' Criteria for DVT Wells' criteria for DVT: 0 Course <MEHDI aEsley - Last Filed: 06/09/22 19:21> Orders Ordered: Discontinued Medications Acetaminophen (Acetaminophen 325 Mg Tablet) 975 mg PO NOW ONE Stop: 06/09/22 17:07 Last Admin: 06/09/22 17:21 Dose: 975 mg Documented By: NR Amlodipine Besylate (Amlodipine 5 Mg Tablet) 5 mg PO NOW ONE Stop: 06/09/22 18:56 Last Admin: 06/09/22 19:16 Dose: 5 mg Documented By: NR Dexamethasone (Dexamethasone 10 Mg/Ml Vial) 10 mg PO NOW ONE Stop: 06/09/22 17:07 Last Admin: 06/09/22 17:20 Dose: 10 mg Documented By: NR Diphenhydramine HCl (Diphenhydramine 50 Mg/Ml Vial) 25 mg IV NOW ONE Stop: 06/09/22 17:10 Last Admin: 06/09/22 17:21 Dose: 25 mg Documented By: NR Sodium Chloride (Normal Saline 0.9%) 1,000 mls @ 1,000 mls/hr IV BOLUS ONE Stop: 06/09/22 18:05 Last Infusion: 06/09/22 18:42 Dose: 0 mls/hr Documented By: Admin: 06/09/22 17:18 Dose: 1,000 mls/hr Documented By: NR Ondansetron HCl (Ondansetron 4 Mg/2 Ml Inj) 4 mg IV NOW ONE Stop: 06/09/22 17:09 Last Admin: 06/09/22 17:20 Dose: 4 mg Documented By: NR Vital Signs Vital signs: Vital Signs - 8 hr 06/09/22 12:41 06/09/22 15:20 06/09/22 15:20 Temperature 97.8 F Pulse Rate 87 94 H Respiratory Rate 14 Blood Pressure 185/119 H 187/107 H Pulse Oximetry 99 100 Oxygen Delivery Method Room Air 06/09/22 15:30 06/09/22 15:30 06/09/22 15:45 Temperature Pulse Rate 83 Respiratory Rate 18 Blood Pressure 161/94 H 166/95 H Pulse Oximetry 98 Oxygen Delivery Method Room Air 06/09/22 15:45 06/09/22 16:00 06/09/22 16:00 Temperature Pulse Rate 92 H 93 H Respiratory Rate 19 20 Blood Pressure 164/101 H Pulse Oximetry 96 97 Oxygen Delivery Method Room Air 06/09/22 16:15 06/09/22 16:15 06/09/22 16:30 Temperature Pulse Rate 90 Respiratory Rate 19 Blood Pressure 169/99 H 156/100 H Pulse Oximetry 97 Oxygen Delivery Method 06/09/22 16:30 06/09/22 16:45 06/09/22 16:45 Temperature Pulse Rate 95 H 94 H Respiratory Rate 21 20 Blood Pressure 159/102 H Pulse Oximetry 96 97 Oxygen Delivery Method 06/09/22 17:00 06/09/22 17:01 06/09/22 17:01 Temperature Pulse Rate 91 H 93 H Respiratory Rate 20 15 Blood Pressure 173/106 H Pulse Oximetry 98 99 Oxygen Delivery Method 06/09/22 17:15 06/09/22 17:15 06/09/22 17:30 Temperature Pulse Rate 93 H Respiratory Rate 21 Blood Pressure 165/99 H 175/103 H Pulse Oximetry 97 Oxygen Delivery Method 06/09/22 17:30 06/09/22 17:45 06/09/22 17:45 Temperature Pulse Rate 90 84 Respiratory Rate 14 21 Blood Pressure 158/100 H Pulse Oximetry 99 97 Oxygen Delivery Method 06/09/22 18:00 06/09/22 18:00 06/09/22 18:15 Temperature Pulse Rate 82 Respiratory Rate 21 Blood Pressure 156/101 H 162/98 H Pulse Oximetry 97 Oxygen Delivery Method 06/09/22 18:15 06/09/22 18:30 06/09/22 18:31 Temperature Pulse Rate 79 81 78 Respiratory Rate 20 19 21 Blood Pressure Pulse Oximetry 97 99 94 Oxygen Delivery Method 06/09/22 18:31 Temperature Pulse Rate Respiratory Rate Blood Pressure 194/108 H Pulse Oximetry Oxygen Delivery Method <Promise Lucas, - Last Filed: 06/11/22 06:55> Orders Ordered: Discontinued Medications Acetaminophen (Acetaminophen 325 Mg Tablet) 975 mg PO NOW ONE Stop: 06/09/22 17:07 Last Admin: 06/09/22 17:21 Dose: 975 mg Documented By: NR Amlodipine Besylate (Amlodipine 5 Mg Tablet) 5 mg PO NOW ONE Stop: 06/09/22 18:56 Last Admin: 06/09/22 19:16 Dose: 5 mg Documented By: NR Dexamethasone (Dexamethasone 10 Mg/Ml Vial) 10 mg PO NOW ONE Stop: 06/09/22 17:07 Last Admin: 06/09/22 17:20 Dose: 10 mg Documented By: NR Diphenhydramine HCl (Diphenhydramine 50 Mg/Ml Vial) 25 mg IV NOW ONE Stop: 06/09/22 17:10 Last Admin: 06/09/22 17:21 Dose: 25 mg Documented By: NR Sodium Chloride (Normal Saline 0.9%) 1,000 mls @ 1,000 mls/hr IV BOLUS ONE Stop: 06/09/22 18:05 Last Infusion: 06/09/22 18:42 Dose: 0 mls/hr Documented By: Admin: 06/09/22 17:18 Dose: 1,000 mls/hr Documented By: LISSETTE Ondansetron HCl (Ondansetron 4 Mg/2 Ml Inj) 4 mg IV NOW ONE Stop: 06/09/22 17:09 Last Admin: 06/09/22 17:20 Dose: 4 mg Documented By: NR Vital Signs Vital signs: Vital Signs - 8 hr 06/09/22 12:41 06/09/22 15:20 06/09/22 15:20 Temperature 97.8 F Pulse Rate 87 94 H Respiratory Rate 14 Blood Pressure 185/119 H 187/107 H Pulse Oximetry 99 100 Oxygen Delivery Method Room Air 06/09/22 15:30 06/09/22 15:30 06/09/22 15:45 Temperature Pulse Rate 83 Respiratory Rate 18 Blood Pressure 161/94 H 166/95 H Pulse Oximetry 98 Oxygen Delivery Method Room Air 06/09/22 15:45 06/09/22 16:00 06/09/22 16:00 Temperature Pulse Rate 92 H 93 H Respiratory Rate 19 20 Blood Pressure 164/101 H Pulse Oximetry 96 97 Oxygen Delivery Method Room Air 06/09/22 16:15 06/09/22 16:15 06/09/22 16:30 Temperature Pulse Rate 90 Respiratory Rate 19 Blood Pressure 169/99 H 156/100 H Pulse Oximetry 97 Oxygen Delivery Method 06/09/22 16:30 06/09/22 16:45 06/09/22 16:45 Temperature Pulse Rate 95 H 94 H Respiratory Rate 21 20 Blood Pressure 159/102 H Pulse Oximetry 96 97 Oxygen Delivery Method 06/09/22 17:00 06/09/22 17:01 06/09/22 17:01 Temperature Pulse Rate 91 H 93 H Respiratory Rate 20 15 Blood Pressure 173/106 H Pulse Oximetry 98 99 Oxygen Delivery Method 06/09/22 17:15 06/09/22 17:15 06/09/22 17:30 Temperature Pulse Rate 93 H Respiratory Rate 21 Blood Pressure 165/99 H 175/103 H Pulse Oximetry 97 Oxygen Delivery Method 06/09/22 17:30 06/09/22 17:45 06/09/22 17:45 Temperature Pulse Rate 90 84 Respiratory Rate 14 21 Blood Pressure 158/100 H Pulse Oximetry 99 97 Oxygen Delivery Method 06/09/22 18:00 06/09/22 18:00 06/09/22 18:15 Temperature Pulse Rate 82 Respiratory Rate 21 Blood Pressure 156/101 H 162/98 H Pulse Oximetry 97 Oxygen Delivery Method 06/09/22 18:15 06/09/22 18:30 06/09/22 18:31 Temperature Pulse Rate 79 81 78 Respiratory Rate 20 19 21 Blood Pressure Pulse Oximetry 97 99 94 Oxygen Delivery Method 06/09/22 18:31 Temperature Pulse Rate Respiratory Rate Blood Pressure 194/108 H Pulse Oximetry Oxygen Delivery Method Medical Decision Making <TORIE EasleyP - Last Filed: 06/09/22 19:21> Lab Data Result diagrams: 06/09/22 12:50 06/09/22 12:50 Labs: Lab Results 06/09/22 06/09/22 06/09/22 Range/Units 12:50 12:50 12:50 WBC 9.0 (4.5-11.0) X10^3/uL RBC 5.00 (4.0-5.2) X10^6/uL Hgb 14.2 (12.0-16.0) g/dL Hct 42.5 (36-46) % MCV 84.8 (80-100) fL MCH 28.4 (26-34) PG MCHC 33.4 (30-36) % RDW 13.0 (11.6-14.8) % Plt Count 355 (150-400) X10^3/uL Neut % (Auto) 65.1 (50-75) % Lymph % (Auto) 24.7 L (25-40) % Glenn % (Auto) 7.6 (3-14) % Eos % (Auto) 2.0 (2-4) % Baso % (Auto) 0.6 (0-2) % Neut # (Auto) 5900 (9387-9447) /uL Lymph # (Auto) 2200 (0062-9088) /uL Glenn # (Auto) 700 (0-900) /uL Eos # (Auto) 200 (0-450) /uL Baso # (Auto) 100 (0-100) /uL PT 12.3 (10.1-12.7) SECONDS INR 1.1 (0.9-1.3) APTT 32 (26-36) SECONDS D-Dimer (<500) ng/ml Sodium 140 (137-145) mmol/L Potassium 3.8 (3.4-5.1) mmol/L Chloride 104 (98-107) mmol/L Carbon Dioxide 24 (22-32) mmol/L BUN 11 (7-17) mg/dL Creatinine 0.59 (0.52-1.04) mg/dL Estimated GFR > 60 (>60) mL/min BUN/Creatinine Ratio 18.6 (6-22) Glucose 107 H (70-100) mg/dL Calcium 9.2 (8.4-10.2) mg/dL Magnesium 2.2 (1.6-2.3) mg/dL Total Bilirubin 0.8 (0.2-1.3) mg/dL AST 30 (14-36) IU/L ALT 35 H (<35) IU/L Alkaline Phosphatase 106 (38-126) U/L Total Creatine Kinase 50 (30-135) U/L CK-MB (CK-2) TNP CK-MB (CK-2) Rel Index TNP Troponin I < 0.012 (0.01-0.034) ng/mL NT-Pro-B Natriuret Pep (<125) pg/mL Total Protein 8.3 H (6.3-8.2) g/dL Albumin 4.6 (3.5-5.0) g/dL Globulin 3.7 (1.7-4.1) g/dL Albumin/Globulin Ratio 1.2 (1.0-2.8) Lipase 170 (23-300) U/L Chlamy pneumoniae PCR (Not Detect) Adenovirus (PCR) (Not Detect) B. pertussis DNA (PCR) (Not Detecte) B.parapertussis DNA PCR (Not Detecte) Coronavirus OC43 (PCR) (Not Detect) Coronavirus HKU1 (PCR) (Not Detect) Coronavirus 229E (PCR) (Not Detect) SARS-CoV-2 (PCR) (Negative) Coronavirus NL63 (PCR) (Not Detect) Human Metapneumovir PCR (Not Detect) Influenza A (RT-PCR) (NEGATIVE) Influenza Type A (PCR) (Not Detect) Influenza B (RT-PCR) (NEGATIVE) Influenza Type B (PCR) (Not Detect) M. pneumoniae (PCR) (Not Detect) Parainfluenza 1 (PCR) (Not Detect) Parainfluenza 2 (PCR) (Not Detect) Parainfluenza 3 (PCR) (Not Detect) Parainfluenza 4 (PCR) (Not Detect) RSV (PCR) (Negative) Entero/Rhino (PCR) (Not Detect) 06/09/22 06/09/22 06/09/22 Range/Units 12:50 17:33 17:33 WBC (4.5-11.0) X10^3/uL RBC (4.0-5.2) X10^6/uL Hgb (12.0-16.0) g/dL Hct (36-46) % MCV (80-100) fL MCH (26-34) PG MCHC (30-36) % RDW (11.6-14.8) % Plt Count (150-400) X10^3/uL Neut % (Auto) (50-75) % Lymph % (Auto) (25-40) % Glenn % (Auto) (3-14) % Eos % (Auto) (2-4) % Baso % (Auto) (0-2) % Neut # (Auto) (9152-3782) /uL Lymph # (Auto) (8325-8054) /uL Glenn # (Auto) (0-900) /uL Eos # (Auto) (0-450) /uL Baso # (Auto) (0-100) /uL PT (10.1-12.7) SECONDS INR (0.9-1.3) APTT (26-36) SECONDS D-Dimer (<500) ng/ml Sodium (137-145) mmol/L Potassium (3.4-5.1) mmol/L Chloride (98-107) mmol/L Carbon Dioxide (22-32) mmol/L BUN (7-17) mg/dL Creatinine (0.52-1.04) mg/dL Estimated GFR (>60) mL/min BUN/Creatinine Ratio (6-22) Glucose (70-100) mg/dL Calcium (8.4-10.2) mg/dL Magnesium (1.6-2.3) mg/dL Total Bilirubin (0.2-1.3) mg/dL AST (14-36) IU/L ALT (<35) IU/L Alkaline Phosphatase (38-126) U/L Total Creatine Kinase (30-135) U/L CK-MB (CK-2) CK-MB (CK-2) Rel Index Troponin I 0.016 (0.01-0.034) ng/mL NT-Pro-B Natriuret Pep 29 (<125) pg/mL Total Protein (6.3-8.2) g/dL Albumin (3.5-5.0) g/dL Globulin (1.7-4.1) g/dL Albumin/Globulin Ratio (1.0-2.8) Lipase (23-300) U/L Chlamy pneumoniae PCR (Not Detect) Adenovirus (PCR) (Not Detect) B. pertussis DNA (PCR) (Not Detecte) B.parapertussis DNA PCR (Not Detecte) Coronavirus OC43 (PCR) (Not Detect) Coronavirus HKU1 (PCR) (Not Detect) Coronavirus 229E (PCR) (Not Detect) SARS-CoV-2 (PCR) Negative (Negative) Coronavirus NL63 (PCR) (Not Detect) Human Metapneumovir PCR (Not Detect) Influenza A (RT-PCR) Flu a negative (NEGATIVE) Influenza Type A (PCR) (Not Detect) Influenza B (RT-PCR) Flu b negative (NEGATIVE) Influenza Type B (PCR) (Not Detect) M. pneumoniae (PCR) (Not Detect) Parainfluenza 1 (PCR) (Not Detect) Parainfluenza 2 (PCR) (Not Detect) Parainfluenza 3 (PCR) (Not Detect) Parainfluenza 4 (PCR) (Not Detect) RSV (PCR) Negative (Negative) Entero/Rhino (PCR) (Not Detect) 06/09/22 06/09/22 Range/Units 17:50 18:30 WBC (4.5-11.0) X10^3/uL RBC (4.0-5.2) X10^6/uL Hgb (12.0-16.0) g/dL Hct (36-46) % MCV (80-100) fL MCH (26-34) PG MCHC (30-36) % RDW (11.6-14.8) % Plt Count (150-400) X10^3/uL Neut % (Auto) (50-75) % Lymph % (Auto) (25-40) % Glenn % (Auto) (3-14) % Eos % (Auto) (2-4) % Baso % (Auto) (0-2) % Neut # (Auto) (8122-0070) /uL Lymph # (Auto) (7204-0357) /uL Glenn # (Auto) (0-900) /uL Eos # (Auto) (0-450) /uL Baso # (Auto) (0-100) /uL PT (10.1-12.7) SECONDS INR (0.9-1.3) APTT (26-36) SECONDS D-Dimer 301 (<500) ng/ml Sodium (137-145) mmol/L Potassium (3.4-5.1) mmol/L Chloride (98-107) mmol/L Carbon Dioxide (22-32) mmol/L BUN (7-17) mg/dL Creatinine (0.52-1.04) mg/dL Estimated GFR (>60) mL/min BUN/Creatinine Ratio (6-22) Glucose (70-100) mg/dL Calcium (8.4-10.2) mg/dL Magnesium (1.6-2.3) mg/dL Total Bilirubin (0.2-1.3) mg/dL AST (14-36) IU/L ALT (<35) IU/L Alkaline Phosphatase (38-126) U/L Total Creatine Kinase (30-135) U/L CK-MB (CK-2) CK-MB (CK-2) Rel Index Troponin I (0.01-0.034) ng/mL NT-Pro-B Natriuret Pep (<125) pg/mL Total Protein (6.3-8.2) g/dL Albumin (3.5-5.0) g/dL Globulin (1.7-4.1) g/dL Albumin/Globulin Ratio (1.0-2.8) Lipase (23-300) U/L Chlamy pneumoniae PCR Not detected (Not Detect) Adenovirus (PCR) Not detected (Not Detect) B. pertussis DNA (PCR) Not detected (Not Detecte) B.parapertussis DNA PCR Not detected (Not Detecte) Coronavirus OC43 (PCR) Not detected (Not Detect) Coronavirus HKU1 (PCR) Not detected (Not Detect) Coronavirus 229E (PCR) Not detected (Not Detect) SARS-CoV-2 (PCR) Not detected (Negative) Coronavirus NL63 (PCR) Not detected (Not Detect) Human Metapneumovir PCR Not detected (Not Detect) Influenza A (RT-PCR) (NEGATIVE) Influenza Type A (PCR) Not detected (Not Detect) Influenza B (RT-PCR) (NEGATIVE) Influenza Type B (PCR) Not detected (Not Detect) M. pneumoniae (PCR) Not detected (Not Detect) Parainfluenza 1 (PCR) Not detected (Not Detect) Parainfluenza 2 (PCR) Not detected (Not Detect) Parainfluenza 3 (PCR) Not detected (Not Detect) Parainfluenza 4 (PCR) Not detected (Not Detect) RSV (PCR) Not detected (Negative) Entero/Rhino (PCR) Not detected (Not Detect) Imaging Data Chest x-ray: Radiologist's Impression: PROCEDURE:? XR CHEST 1V ? INDICATIONS:? chest pain ? TECHNIQUE:? One view of the chest was acquired.? ? COMPARISON:? [facility], , XR CHEST 2V, 04/30/2020, 16:27. ? FINDINGS:? ? Surgical changes and devices:? None.? ? Lungs and pleura:? Calcified granuloma is seen in right lower lung field.? No focal infiltrate.? No pleural effusions or pneumothorax.? ? Mediastinum:? Mediastinal contours appear normal.? Heart size is normal.? ? Bones and chest wall:? No suspicious bony lesions.? Overlying soft tissues appear unremarkable.? ? IMPRESSION:? No acute cardiopulmonary pathology. ? ? Dictated by: Wing Dickinson M.D. on 06/09/2022 at 13:23 ? ? Approved by: Wing Dickinson M.D. on 06/09/2022 at 13:24 ? ECG Data Interpretation: 1554 EKG independently reviewed by myself at 1715 reveals normal sinus rhythm at [86] bpm with regular axis and intervals. No STEMI, ST segment changes, arrhythmia, or acute ischemic changes. 1729 EKG independently reviewed by myself at [1731] reveals normal sinus rhythm at [94] bpm with regular axis and intervals. Still with minimal voltage, with flipped T-waves in lead 3 with relatively flat T-waves on initial EKG in lead 3. No STEMI, ST segment changes, arrhythmia, or acute ischemic changes. MDM Narrative Medical decision making narrative: CC: Chest pain, hypertension, headache This is a 37-year-old female who was recently diagnosed with hypertension started on 5 mg amlodipine daily who presents to the emergency department complaining of headache, dizziness, chest pain with shortness of breath started this morning with hypertension at 175/140 after she took her amlodipine. She was recently started on amlodipine 1 week ago by her primary care provider 5 mg each day. She took this morning. She states that she is been more tired than usual over the last 2 days, felt like she had low energy, has a history of migraines and states that she is had a headache for the last 3 days. She endorses chest pain with exertional activity, states it is sharp, has history of heartburn and states more often recently without nausea or vomiting, diaphoresis, radiation, or diarrhea. States this has been coming and going over the last 4 days. Differential diagnoses include, but are not limited to: Viral infection, dehydration, ACS, pulmonary embolism, migraine, aortic dissection, pneumothorax, pericarditis, myocarditis, hypertensive crisis, hypertensive urgency, hypertension with end-organ dysfunction. I have reviewed the patient's vital signs and nursing notes as well as prior records if available. My imaging interpretation: Chest x-ray without widening mediastinum, patchy infiltration on chest x-ray or focal pneumonia Clinical Decision Rules/Scores evaluated: Heart score of 1 with a low risk of MACE Independently reviewed patient's EKG at 15:44 showing normal sinus rhythm with normal intervals, no ST depression or ST elevation Discussion of Management with other Health Professionals: Re-evaluations/Ongoing course of care: Patient has been waiting for 6 hours prior to being seen by provider, I walked into her room at 17:00, patient endorses feeling tired, weak, still has similar symptoms to when she arrived. Took her amlodipine today. States that she has a mild headache, denies dysuria, has had intermittent chest pain with Exertional shortness of breath added on D- dimer, repeat troponin, repeat EKG now shows flipped T-waves in lead 3. Will reassess blood pressure after IV fluids 1843 patient's headache is feeling much better, her tachycardia has improved, D- dimer remains pending Re vital Lab test results independently reviewed, pertinent findings: Initial troponin 0.012, 2nd troponin 0.016, mild table concentration, normal coagulation times, no elevation of BNP at 29, lipase of 170, COVID, influenza a, B, and RSV PCRs are negative, respiratory panel also came back negative, D Dimer 301 Patient was treated with 1 L of normal saline, treated for complicated emergency hearing with dexamethasone, Tylenol, Zofran and Benadryl, patient felt much better afterwards. On reassessment prior to discharge after her D-dimer came back negative for elevation, respiratory panel came back negative for all tested viruses, repeat troponin was 0.016. Chest x-ray does not show widened mediastinum, focal opacity or lobar pneumonia. Patient endorsed history of migraine for the last 3 days with migraine history. Her symptoms improved with 1 L of IV fluid, Benadryl, Tylenol, dexamet hasone 10 mg. Patient's blood pressure was 90 systolic prior to discharge, treated patient with a 2nd dose of 5 mg p.o. amlodipine, discussed with attending physician in ED regarding plan of care. Will increase patient's amlodipine to 10 mg daily, have her follow-up with Dr. Rodrigues, and return to the emergency department for any worsening symptoms. Patient's symptoms improved over duration of stay with above-stated therapies. Social considerations that may affect disposition:none Shared decision making: Patient, Dr. Lucas Disposition: see below, along with detailed discharge instructions that have been reviewed with the patient as well as indications for ED re-evaluation and additional outpatient follow-up. Questions are addressed and there is agreement with the plan and for follow-up. Patient is appropriate for outpatient management. MIPS: This encounter doesn't have any diagnosis associated with MIPS criteria. IJesi ARNP, personally performed the services described in the documentation, and it accurately records my words and actions. I collaborated with the ED attending physician for FRANCHESCA level 2, 3, and some level 4s as appropriate. <Promise Lucas, DO - Last Filed: 06/11/22 06:55> Lab Data Labs: Lab Results 06/09/22 06/09/22 06/09/22 Range/Units 12:50 12:50 12:50 WBC 9.0 (4.5-11.0) X10^3/uL RBC 5.00 (4.0-5.2) X10^6/uL Hgb 14.2 (12.0-16.0) g/dL Hct 42.5 (36-46) % MCV 84.8 (80-100) fL MCH 28.4 (26-34) PG MCHC 33.4 (30-36) % RDW 13.0 (11.6-14.8) % Plt Count 355 (150-400) X10^3/uL Neut % (Auto) 65.1 (50-75) % Lymph % (Auto) 24.7 L (25-40) % Glenn % (Auto) 7.6 (3-14) % Eos % (Auto) 2.0 (2-4) % Baso % (Auto) 0.6 (0-2) % Neut # (Auto) 5900 (4299-8679) /uL Lymph # (Auto) 2200 (9362-4014) /uL Glenn # (Auto) 700 (0-900) /uL Eos # (Auto) 200 (0-450) /uL Baso # (Auto) 100 (0-100) /uL PT 12.3 (10.1-12.7) SECONDS INR 1.1 (0.9-1.3) APTT 32 (26-36) SECONDS D-Dimer (<500) ng/ml Sodium 140 (137-145) mmol/L Potassium 3.8 (3.4-5.1) mmol/L Chloride 104 (98-107) mmol/L Carbon Dioxide 24 (22-32) mmol/L BUN 11 (7-17) mg/dL Creatinine 0.59 (0.52-1.04) mg/dL Estimated GFR > 60 (>60) mL/min BUN/Creatinine Ratio 18.6 (6-22) Glucose 107 H (70-100) mg/dL Calcium 9.2 (8.4-10.2) mg/dL Magnesium 2.2 (1.6-2.3) mg/dL Total Bilirubin 0.8 (0.2-1.3) mg/dL AST 30 (14-36) IU/L ALT 35 H (<35) IU/L Alkaline Phosphatase 106 (38-126) U/L Total Creatine Kinase 50 (30-135) U/L CK-MB (CK-2) TNP CK-MB (CK-2) Rel Index TNP Troponin I < 0.012 (0.01-0.034) ng/mL NT-Pro-B Natriuret Pep (<125) pg/mL Total Protein 8.3 H (6.3-8.2) g/dL Albumin 4.6 (3.5-5.0) g/dL Globulin 3.7 (1.7-4.1) g/dL Albumin/Globulin Ratio 1.2 (1.0-2.8) Lipase 170 (23-300) U/L Chlamy pneumoniae PCR (Not Detect) Adenovirus (PCR) (Not Detect) B. pertussis DNA (PCR) (Not Detecte) B.parapertussis DNA PCR (Not Detecte) Coronavirus OC43 (PCR) (Not Detect) Coronavirus HKU1 (PCR) (Not Detect) Coronavirus 229E (PCR) (Not Detect) SARS-CoV-2 (PCR) (Negative) Coronavirus NL63 (PCR) (Not Detect) Human Metapneumovir PCR (Not Detect) Influenza A (RT-PCR) (NEGATIVE) Influenza Type A (PCR) (Not Detect) Influenza B (RT-PCR) (NEGATIVE) Influenza Type B (PCR) (Not Detect) M. pneumoniae (PCR) (Not Detect) Parainfluenza 1 (PCR) (Not Detect) Parainfluenza 2 (PCR) (Not Detect) Parainfluenza 3 (PCR) (Not Detect) Parainfluenza 4 (PCR) (Not Detect) RSV (PCR) (Negative) Entero/Rhino (PCR) (Not Detect) 06/09/22 06/09/22 06/09/22 Range/Units 12:50 17:33 17:33 WBC (4.5-11.0) X10^3/uL RBC (4.0-5.2) X10^6/uL Hgb (12.0-16.0) g/dL Hct (36-46) % MCV (80-100) fL MCH (26-34) PG MCHC (30-36) % RDW (11.6-14.8) % Plt Count (150-400) X10^3/uL Neut % (Auto) (50-75) % Lymph % (Auto) (25-40) % [place] % (Auto) (3-14) % Eos % (Auto) (2-4) % Baso % (Auto) (0-2) % Neut # (Auto) (6972-7532) /uL Lymph # (Auto) (3778-7371) /uL Glenn # (Auto) (0-900) /uL Eos # (Auto) (0-450) /uL Baso # (Auto) (0-100) /uL PT (10.1-12.7) SECONDS INR (0.9-1.3) APTT (26-36) SECONDS D-Dimer (<500) ng/ml Sodium (137-145) mmol/L Potassium (3.4-5.1) mmol/L Chloride (98-107) mmol/L Carbon Dioxide (22-32) mmol/L BUN (7-17) mg/dL Creatinine (0.52-1.04) mg/dL Estimated GFR (>60) mL/min BUN/Creatinine Ratio (6-22) Glucose (70-100) mg/dL Calcium (8.4-10.2) mg/dL Magnesium (1.6-2.3) mg/dL Total Bilirubin (0.2-1.3) mg/dL AST (14-36) IU/L ALT (<35) IU/L Alkaline Phosphatase (38-126) U/L Total Creatine Kinase (30-135) U/L CK-MB (CK-2) CK-MB (CK-2) Rel Index Troponin I 0.016 (0.01-0.034) ng/mL NT-Pro-B Natriuret Pep 29 (<125) pg/mL Total Protein (6.3-8.2) g/dL Albumin (3.5-5.0) g/dL Globulin (1.7-4.1) g/dL Albumin/Globulin Ratio (1.0-2.8) Lipase (23-300) U/L Chlamy pneumoniae PCR (Not Detect) Adenovirus (PCR) (Not Detect) B. pertussis DNA (PCR) (Not Detecte) B.parapertussis DNA PCR (Not Detecte) Coronavirus OC43 (PCR) (Not Detect) Coronavirus HKU1 (PCR) (Not Detect) Coronavirus 229E (PCR) (Not Detect) SARS-CoV-2 (PCR) Negative (Negative) Coronavirus NL63 (PCR) (Not Detect) Human Metapneumovir PCR (Not Detect) Influenza A (RT-PCR) Flu a negative (NEGATIVE) Influenza Type A (PCR) (Not Detect) Influenza B (RT-PCR) Flu b negative (NEGATIVE) Influenza Type B (PCR) (Not Detect) M. pneumoniae (PCR) (Not Detect) Parainfluenza 1 (PCR) (Not Detect) Parainfluenza 2 (PCR) (Not Detect) Parainfluenza 3 (PCR) (Not Detect) Parainfluenza 4 (PCR) (Not Detect) RSV (PCR) Negative (Negative) Entero/Rhino (PCR) (Not Detect) 06/09/22 06/09/22 Range/Units 17:50 18:30 WBC (4.5-11.0) X10^3/uL RBC (4.0-5.2) X10^6/uL Hgb (12.0-16.0) g/dL Hct (36-46) % MCV (80-100) fL MCH (26-34) PG MCHC (30-36) % RDW (11.6-14.8) % Plt Count (150-400) X10^3/uL Neut % (Auto) (50-75) % Lymph % (Auto) (25-40) % Glenn % (Auto) (3-14) % Eos % (Auto) (2-4) % Baso % (Auto) (0-2) % Neut # (Auto) (5201-1551) /uL Lymph # (Auto) (7862-4898) /uL Glenn # (Auto) (0-900) /uL Eos # (Auto) (0-450) /uL Baso # (Auto) (0-100) /uL PT (10.1-12.7) SECONDS INR (0.9-1.3) APTT (26-36) SECONDS D-Dimer 301 (<500) ng/ml Sodium (137-145) mmol/L Potassium (3.4-5.1) mmol/L Chloride (98-107) mmol/L Carbon Dioxide (22-32) mmol/L BUN (7-17) mg/dL Creatinine (0.52-1.04) mg/dL Estimated GFR (>60) mL/min BUN/Creatinine Ratio (6-22) Glucose (70-100) mg/dL Calcium (8.4-10.2) mg/dL Magnesium (1.6-2.3) mg/dL Total Bilirubin (0.2-1.3) mg/dL AST (14-36) IU/L ALT (<35) IU/L Alkaline Phosphatase (38-126) U/L Total Creatine Kinase (30-135) U/L CK-MB (CK-2) CK-MB (CK-2) Rel Index Troponin I (0.01-0.034) ng/mL NT-Pro-B Natriuret Pep (<125) pg/mL Total Protein (6.3-8.2) g/dL Albumin (3.5-5.0) g/dL Globulin (1.7-4.1) g/dL Albumin/Globulin Ratio (1.0-2.8) Lipase (23-300) U/L Chlamy pneumoniae PCR Not detected (Not Detect) Adenovirus (PCR) Not detected (Not Detect) B. pertussis DNA (PCR) Not detected (Not Detecte) B.parapertussis DNA PCR Not detected (Not Detecte) Coronavirus OC43 (PCR) Not detected (Not Detect) Coronavirus HKU1 (PCR) Not detected (Not Detect) Coronavirus 229E (PCR) Not detected (Not Detect) SARS-CoV-2 (PCR) Not detected (Negative) Coronavirus NL63 (PCR) Not detected (Not Detect) Human Metapneumovir PCR Not detected (Not Detect) Influenza A (RT-PCR) (NEGATIVE) Influenza Type A (PCR) Not detected (Not Detect) Influenza B (RT-PCR) (NEGATIVE) Influenza Type B (PCR) Not detected (Not Detect) M. pneumoniae (PCR) Not detected (Not Detect) Parainfluenza 1 (PCR) Not detected (Not Detect) Parainfluenza 2 (PCR) Not detected (Not Detect) Parainfluenza 3 (PCR) Not detected (Not Detect) Parainfluenza 4 (PCR) Not detected (Not Detect) RSV (PCR) Not detected (Negative) Entero/Rhino (PCR) Not detected (Not Detect) Discharge Plan Departure Patient Disposition: Home Clinical Impression: Shortness of breath Hypertension Qualifiers: Hypertension type: unspecified Qualified Code(s): I10 - Essential (primary) hypertension Instructions: Migraine -- Adult, DI for High Blood Pressure Activity Restrictions/Additional Instructions: *You have been diagnosed with elevated blood pressure, without evidence of end- organ dysfunction or other abnormality. Your chest x-ray does not show anything exciting which is good news, you did the cope it dehydrated when I saw you but you had waited all day. Both of your EKGs do not show any evidence of dangerous findings. For your blood pressure, please start taking 10 mg of amlodipine q.a.m., monitor your blood pressures, stay hydrated, take Tylenol and avoid ibuprofen as needed. Please follow-up with Dr. Rodrigues about this, it does not appear that you have any signs of kidney injury, heart strain, active infection, or other. This should help, I am sorry for your extremely long day, that really stinks. I hope that this gets as soon as possible, you have a great doctor, send a message via e-mail to the nurse as needed but she will get this message about your visit today. *What to do: *Please continue to take your regular medications as directed. [ x] New medication prescriptions sent to your pharmacy: [[facility] ] [ ] New medication written as a paper prescription [ ] No new medications given *Please follow up with your primary care provider in 2-3 days, call for an appointment. Let them know you were seen in the Emergency Department and that we asked that you be seen for follow-up. We will electronically transmit a record of today's note if your PCP is in our system *If you do not have a primary care provider please contact [phone] to establish care with one of the [facility] primary care providers. *Return to Emergency Department if you should have any new, worsening, or concerning symptoms, such as [fever greater than 101F, chills, worsening pain, persistent vomiting or other bothersome symptoms]. Prescriptions: New amlodipine 10 mg tablet 10 mg PO DAILY Qty: 30 3RF No Action amlodipine 5 mg tablet 5 mg PO QAM aspirin 81 mg Tablet 81 mg PO DAILY Emgality Pen 120 mg/mL pen injector 120 mg SUBCUT QMONTH Label Comments: inject 1 milliliter ( 120 milligrams ) subcutaneously and INTO TH... (REFER TO PRESCRIPTION NOTES). Referrals: Maia Rodrigues MD [Primary Care Provider] - Stand Alone Forms: Patient Portal/API <Promise Lucas DO - Last Filed: 06/11/22 06:55> Cosign ED Attending Cosignature Attestation: I was immediately available in the department for consultation. Documentation has been reviewed. Patient case and plan was discussed.
[2022-06-09] MEDS: SODIUM CHLORIDE 0.9% 1,000 ML 1000 ML IV (17:18)
[2022-06-09] MEDS: ONDANSETRON 4 MG/2 ML INJ IV (17:20)
[2022-06-09] MEDS: DEXAMETHASONE 10 MG/ML VIAL PO (17:20)
[2022-06-09] MEDS: diphenhydrAMINE 50 MG/ML VIAL 25 MG IV (17:21)
[2022-06-09] MEDS: ACETAMINOPHEN 325 MG TABLET 975 MG PO (17:21)
[2022-06-09 18:13] LABS: NT-proBNP (BNP-Adult 18+) 29 pg/mL (<125)
[2022-06-09 18:15] LABS: Troponin I 0.016 ng/mL (0.01-0.034)
[2022-06-09 18:50] LABS: D Dimer 301 ng/ml (<500)
[2022-06-09 19:04] LABS: Adenovirus Not Detected (Not Detect); B. parapertussis Not Detected (Not Detecte); Bordetella pertussis Not Detected (Not Detecte); Chlamydophila pneumoniae Not Detected (Not Detect); Coronavirus 229E Not Detected (Not Detect); Coronavirus HKU1 Not Detected (Not Detect); Coronavirus NL 63 Not Detected (Not Detect); Coronavirus OC43 Not Detected (Not Detect); Human Metapneumovirus Not Detected (Not Detect); Human Rhinovirus/Enterovirus Not Detected (Not Detect); Influenza A Not Detected (Not Detect); Influenza B Not Detected (Not Detect); Mycoplasma pneumoniae Not Detected (Not Detect); Parainfluenza Virus 1 Not Detected (Not Detect); Parainfluenza Virus 2 Not Detected (Not Detect); Parainfluenza Virus 3 Not Detected (Not Detect); Parainfluenza Virus 4 Not Detected (Not Detect); Respiratory Syncytial Virus Not Detected (Not Detect); SARS- CoV-2 Not Detected (Not Detecte)
[2022-06-09] MEDS: AMLODIPINE 5 MG TABLET PO (19:16)
== END 2022-06-09 19:19 | disposition home or self-care (01) ==
PROVIDERS: Emergency Medicine; Emergency Provider Nurse Practitioner Critical Care Medicine; PCP Family Medicine
DX: I10 Essential (primary) hypertension (principal); R06.02 Shortness of breath; R07.9 Chest pain, unspecified; Z20.822 Contact with and (suspected) exposure to COVID-19
CPT/HCPCS: 0241U; 36415; 71045; 80053; 82550; 83690; 83735; 83880; 84484; 85025; 85379; 85610; 85730; 87633; 93005; 93010; 96361; 96374; 96375; 99284; J1100; J1200; J2405

== ENCOUNTER → 2023-06-27 16:33 | Outpatient (CLI) | payer OTHER, SELFPAY ==
[2023-06-27 18:01] LABS: Add Manual Diff / Slide Review NO; Basophils Absolute Auto 100 /uL (0-100); Basophils Percent Auto 0.8 % (0-2); Eosinophils Absolute Auto 300 /uL (0-450); Hematocrit 39.1 % (36-46); Hemoglobin 13.5 g/dL (12.0-16.0); Lymphocytes Absolute Auto 2600 /uL (1100-4500); Lymphocytes Percent Auto 33.9 % (25-40); Mean Corpuscular HGB Conc 34.6 % (30-36); Mean Corpuscular Hemoglobin 30.1 PG (26-34); Mean Corpuscular Volume 87.2 fL (80-100); Monocytes Absolute Auto 500 /uL (0-900); Monocytes Percent Auto 6.5 % (3-14); Neutrophils Absolute Auto 4200 /uL (1500-7000); Neutrophils Percent Auto 54.8 % (50-75); Platelet Count 318 X10^3/uL (150-400); Red Blood Cell Count 4.48 X10^6/uL (4.0-5.2); Red Cell Distribution Width 12.4 % (11.6-14.8); White Blood Cell Count 7.7 X10^3/uL (4.5-11.0)
[2023-06-27 18:34] LABS: Alanine Aminotransferase 16 IU/L (<35); Albumin 4.3 g/dL (3.5-5.0); Albumin Globulin Ratio 1.3 (1.0-2.8); Alkaline Phosphatase 85 U/L (38-126); Aspartate Aminotransferase 31 IU/L (14-36); BUN Creatinine Ratio 25.4 (6-22); Bilirubin Total 0.6 mg/dL (0.2-1.3); Blood Urea Nitrogen 17 mg/dL (7-17); Calcium 9.6 mg/dL (8.4-10.2); Carbon Dioxide 28 mmol/L (22-32); Chloride 102 mmol/L (98-107); Estimated Glomerular Filt Rate > 60 mL/min (>60); Globulin 3.3 g/dL (1.7-4.1); Glucose 79 mg/dL (70-100); HEMOLYSIS < 15 (0-50); Potassium 3.8 mmol/L (3.4-5.1); Sodium 137 mmol/L (137-145); Total Protein 7.6 g/dL (6.3-8.2); Uric Acid 3.5 mg/dL (2.5-6.2)
[2023-06-27 18:38] LABS: High Sensitivity CRP - Cardiac < 0.3 mg/L (1.0-3.0)
[2023-06-27 18:39] LABS: Rheumatoid Factor < 8.6 IU/mL (<12.0)
[2023-06-27 18:48] LABS: Erythrocyte Sedimentation Rate 7 MM/HR (0-20)
[2023-06-27 18:49] LABS: Thyroid Stimulating Hormone 1.23 uIU/mL (0.47-4.68)
[2023-06-29 16:16] LABS: SS A Ro Sjogrens Antibody < 0.2 AI (0.0-0.9); SS B La Sjogrens Antibody < 0.2 AI (0.0-0.9)
[2023-07-03 16:34] LABS: ANA Screen, IFA Negative (.)
[2023-07-04 16:50] LABS: HLA B27 Negative (.)
== END ==
PROVIDERS: PCP Family Medicine; Referring Provider Ophthalmology; Visit Provider Ophthalmology
DX: M35.00 Sjogren syndrome, unspecified (principal)
CPT/HCPCS: 36415; 80053; 81374; 84443; 84550; 85025; 85651; 86038; 86140; 86235; 86430

== ENCOUNTER 2024-02-04 08:53 | Emergency (ER) | payer OTHER, SELFPAY ==
[2024-02-04] VITALS (10 sets, daily range): BP systolic 111–165; BP diastolic 66–106; PULSE 66–92; RESP 17–22; TEMP 36.6; O2SAT 98–100; BMI 35.6
--- NOTE | 2024-02-04 09:13 | ED.HA ---
HPI - Headache General Chief Complaint: Headache Stated Complaint: WALLACE, high BP, overall doesnt feel well Time Seen by Provider: 02/04/24 08:58 Source: patient Mode of arrival: Ambulatory Limitations: no limitations History of Present Illness HPI Narrative: Patient is a 38-year-old female. Has a history of migraine headaches and also high blood pressure. Is here for evaluation of a couple days of generally not feeling very well. Difficult for her to exactly describe her symptoms but she denies chest pain, shortness of breath, fevers, abdominal pain, nausea vomiting. She was having a migraine headache. She does take daily medications for her migraines and has not taken any of her medicines for the past couple days because she just has not felt very well. She was also not taken her blood pressure medicines as well. He states she was driving to work this morning and was not feeling well and did not take her medicines became anxious about taking her medicines which is what prompted her to contact her to come to the emergency department for further evaluation. Related Data Home Medications Medication Instructions Recorded Confirmed amlodipine 5 mg tablet 5 mg PO QAM 06/09/22 06/09/22 aspirin 81 mg tablet 81 mg PO DAILY 06/09/22 06/09/22 galcanezumab-gnlm 120 mg/mL 120 mg SUBCUT QMONTH 06/09/22 06/09/22 subcutaneous pen injector (Emgality Pen) Previous Rx's Medication Instructions Recorded amlodipine 10 mg tablet 10 mg PO DAILY #30 tabs 06/09/22 Allergies Allergy/AdvReac Type Severity Reaction Status Date / Time No Known Drug Allergies Allergy Verified 06/09/22 12:46 Review of Systems Review of Systems Narrative: See HPI Patient History Medical History Stiffness of sacroiliac joint Chronic neck pain with normal neurological examination Neck stiffness Sacral region somatic dysfunction Pelvic somatic dysfunction Segmental and somatic dysfunction of abdomen and other regions Lumbar region somatic dysfunction Thoracic region somatic dysfunction Cervical somatic dysfunction Cranial somatic dysfunction Healthy adult Surgical History No pertinent past surgical history Family History Father Hypertension Hyperlipidemia Diabetes mellitus Mother Diabetes mellitus Hyperlipidemia Hypertension Social History (Reviewed 09/09/24 @ 09:21 by JOHN Freeman Smoking Status: Never smoker Smoking Status: Never smoker alcohol intake frequency: 0-2 drinks per day Substance Use Type: does not use Exam Initial Vital Signs Initial Vital Signs: Vital Signs Blood Pressure 165/106 H 02/04/24 08:58 Const General: cooperative, comfortable and No ill appearing HENMT Head: normal to inspection and normocephalic Resp Effort & Inspection: normal respiratory effort Auscultation: clear to auscultation bilaterally Cardio Rate: regular rate Rhythm: regular rhythm GI Inspection: normal to inspection and non-distended Skin General: no rashes or lesions noted Neuro General: patient alert, patient awake, patient oriented x3 and moves all extremities Extrem General: normal to inspection Course Orders Ordered: ED Orders 02/04/24 09:15 EKG-12 Lead Stat 02/04/24 09:30 Complete Blood Count AUTO DIFF Stat Comprehensive Metabolic Panel Stat Covid-19 + FLU A/B + RSV - PCR Stat Ethanol (ETOH) Stat Lipase Stat Discontinued Medications Sodium Chloride (Normal Saline 0.9%) 1,000 mls @ 1,000 mls/hr IV BOLUS ONE Stop: 02/04/24 10:12 Last Infusion: 02/04/24 10:42 Dose: Infused Documented By: Infusion: 02/04/24 10:01 Dose: 1,000 mls/hr Documented By: Infusion: 02/04/24 09:49 Dose: 0 mls/hr Documented By: Admin: 02/04/24 09:27 Dose: 1,000 mls/hr Documented By: TASHA Acetaminophen (Ofirmev) 1,000 mg in 100 mls @ 400 mls/hr IV NOW ONE Stop: 02/04/24 09:27 Last Infusion: 02/04/24 09:49 Dose: Infused Documented By: Admin: 02/04/24 09:26 Dose: 400 mls/hr Documented By: TASHA Ketorolac Tromethamine (Ketorolac 30 Mg/Ml Vial) 15 mg IV NOW ONE Stop: 02/04/24 09:14 Last Admin: 02/04/24 09:26 Dose: 15 mg Documented By: TASHA Vital Signs Vital signs: Vital Signs - 8 hr 02/04/24 08:58 02/04/24 09:01 02/04/24 09:03 Temperature 97.8 F Pulse Rate 92 H 74 Respiratory Rate 20 Blood Pressure 165/106 H 165/106 H Pulse Oximetry 98 100 Oxygen Delivery Method Room Air 02/04/24 09:30 02/04/24 09:30 02/04/24 09:56 Temperature Pulse Rate 78 Respiratory Rate Blood Pressure 139/81 127/84 Pulse Oximetry 99 Oxygen Delivery Method Room Air 02/04/24 09:56 02/04/24 10:00 02/04/24 10:00 Temperature Pulse Rate 69 66 Respiratory Rate 19 18 Blood Pressure 132/87 Pulse Oximetry 99 100 Oxygen Delivery Method 02/04/24 10:30 02/04/24 10:31 02/04/24 10:31 Temperature Pulse Rate 70 72 Respiratory Rate 17 22 Blood Pressure 111/66 Pulse Oximetry 100 100 Oxygen Delivery Method MDM - Headache Lab Data Attestation: I reviewed the patient's lab results. 02/04/24 09:30 02/04/24 09:30 Labs: Lab Results 02/04/24 Range/Units 09:30 WBC 7.3 (4.5-11.0) X10^3/uL RBC 4.76 (4.0-5.2) X10^6/uL Hgb 13.9 (12.0-16.0) g/dL Hct 41.5 (36-46) % MCV 87.2 (80-100) fL MCH 29.2 (26-34) PG MCHC 33.5 (30-36) % RDW 13.2 (11.6-14.8) % Plt Count 306 (150-400) X10^3/uL Neut % (Auto) 58.9 (50-75) % Lymph % (Auto) 29.0 (25-40) % [place] % (Auto) 8.0 (3-14) % Eos % (Auto) 3.1 (2-4) % Baso % (Auto) 1.0 (0-2) % Neut # (Auto) 4300 (2345-8572) /uL Lymph # (Auto) 2100 (0407-2286) /uL [place] # (Auto) 600 (0-900) /uL Eos # (Auto) 200 (0-450) /uL Baso # (Auto) 100 (0-100) /uL Sodium 138 (137-145) mmol/L Potassium 4.0 (3.4-5.1) mmol/L Chloride 106 (98-107) mmol/L Carbon Dioxide 21 L (22-32) mmol/L BUN 11 (7-17) mg/dL Creatinine 0.74 (0.52-1.04) mg/dL Estimated GFR > 60 (>60) mL/min BUN/Creatinine Ratio 14.9 (6-22) Glucose 84 (70-100) mg/dL Calcium 9.5 (8.4-10.2) mg/dL Total Bilirubin 0.8 (0.2-1.3) mg/dL AST 28 (14-36) IU/L ALT 25 (<35) IU/L Alkaline Phosphatase 96 (38-126) U/L Total Protein 7.9 (6.3-8.2) g/dL Albumin 4.6 (3.5-5.0) g/dL Globulin 3.3 (1.7-4.1) g/dL Albumin/Globulin Ratio 1.4 (1.0-2.8) Lipase 172 (23-300) U/L Ethyl Alcohol < 10 ( - 10) mg/dL SARS-CoV-2 (PCR) Negative (Negative) Influenza A (RT-PCR) Flu a negative (NEGATIVE) Influenza B (RT-PCR) Flu b negative (NEGATIVE) RSV (PCR) Negative (Negative) Point of Care Testing Test Results Negative Urine Dip Bedside Urine Glucose Negative Bedside Urine Bilirubin - Negative Bedside Urine Ketone - Negative Urine Specific [place] 1.005 Bedside Urine Occult Blood - Negative Bedside Urine pH 6.0 Bedside Urine Protein - Negative Bedside Urine Urobilinogen - Negative Bedside Urine Nitrite - Negative Bedside Urine Leukocytes - Negative Esterase MDM Narrative Medical decision making narrative: Blood pressure improve with treatment of headache and taking her normal home blood pressure medicines. I have low suspicion that this is an intracranial hemorrhage. She states she does still feel ?loopy? however I feel that this is less related to her high blood pressure. There was no signs of any infection. Low suspicion for CVA/TIA. No indication for antibiotics. Provided reassurance to the patient. She was given return precautions and follow-up instructions. She expressed understanding and agreement with plan. Discharge Plan Departure Patient Disposition: Home Clinical Impression: Hypertension, Headache Instructions: DI for High Blood Pressure Activity Restrictions/Additional Instructions: I recommend that you continue to take all of your medications as directed. Contact your primary care doctor for follow-up. Return to the emergency department for new or worsening symptoms. Prescriptions: No Action amlodipine 5 mg tablet 5 mg PO QAM aspirin 81 mg Tablet 81 mg PO DAILY Emgality Pen 120 mg/mL pen injector 120 mg SUBCUT QMONTH Patient Comments: inject 1 milliliter ( 120 milligrams ) subcutaneously and INTO TH... (REFER TO PRESCRIPTION NOTES). amlodipine 10 mg tablet 10 mg PO DAILY Qty: 30 3RF Referrals: Maia Rodrigues MD [Primary Care Provider] - Stand Alone Forms: Patient Portal/API
[2024-02-04] MEDS: KETOROLAC 30 MG/ML VIAL 15 MG IV (09:26)
[2024-02-04] MEDS: ACETAMINOPHEN IV 1,000 MG/100 ML VIAL 400 MG IV (09:26)
[2024-02-04] MEDS: SODIUM CHLORIDE 0.9% 1,000 ML 1000 ML IV (09:27)
[2024-02-04 09:41] LABS: Add Manual Diff / Slide Review NO; Basophils Absolute Auto 100 /uL (0-100); Eosinophils Absolute Auto 200 /uL (0-450); Eosinophils Percent Auto 3.1 % (2-4); Hematocrit 41.5 % (36-46); Hemoglobin 13.9 g/dL (12.0-16.0); Lymphocytes Absolute Auto 2100 /uL (1100-4500); Mean Corpuscular HGB Conc 33.5 % (30-36); Mean Corpuscular Hemoglobin 29.2 PG (26-34); Mean Corpuscular Volume 87.2 fL (80-100); Monocytes Absolute Auto 600 /uL (0-900); Neutrophils Absolute Auto 4300 /uL (1500-7000); Neutrophils Percent Auto 58.9 % (50-75); Platelet Count 306 X10^3/uL (150-400); Red Blood Cell Count 4.76 X10^6/uL (4.0-5.2); Red Cell Distribution Width 13.2 % (11.6-14.8); White Blood Cell Count 7.3 X10^3/uL (4.5-11.0)
[2024-02-04 09:54] LABS: Alanine Aminotransferase 25 IU/L (<35); Albumin 4.6 g/dL (3.5-5.0); Albumin Globulin Ratio 1.4 (1.0-2.8); Alkaline Phosphatase 96 U/L (38-126); Aspartate Aminotransferase 28 IU/L (14-36); BUN Creatinine Ratio 14.9 (6-22); Bilirubin Total 0.8 mg/dL (0.2-1.3); Blood Urea Nitrogen 11 mg/dL (7-17); Calcium 9.5 mg/dL (8.4-10.2); Carbon Dioxide 21 mmol/L (22-32); Chloride 106 mmol/L (98-107); Estimated Glomerular Filt Rate > 60 mL/min (>60); Globulin 3.3 g/dL (1.7-4.1); Glucose 84 mg/dL (70-100); HEMOLYSIS 22 (0-50); Sodium 138 mmol/L (137-145); Total Protein 7.9 g/dL (6.3-8.2)
[2024-02-04 09:55] LABS: Ethanol (ETOH) < 10 mg/dL; Lipase 172 U/L (23-300)
[2024-02-04 10:34] LABS: Influenza A - CEPHEID Flu A NEGATIVE (NEGATIVE); Influenza B - CEPHEID Flu B NEGATIVE (NEGATIVE); Respiratory Syncytial Virus Negative (Negative)
[2024-02-04 10:35] LABS: COVID-19 CEPHEID 4-PLEX PCR Negative (Negative)
== END 2024-02-04 11:18 | disposition home or self-care (01) ==
PROVIDERS: Emergency Provider Emergency Medicine; PCP Family Medicine
DX: I10 Essential (primary) hypertension (principal); R51.9 Headache, unspecified; Z11.52 Encounter for screening for COVID-19
CPT/HCPCS: 0241U; 36415; 80053; 80320; 81003; 81025; 83690; 85025; 96361; 96365; 96375; 99284; J0136; J1885

== ENCOUNTER → 2024-08-18 16:38 | Outpatient (CLI) | payer BC, SELFPAY ==
[2024-08-18 17:25] LABS: Add Manual Diff / Slide Review NO; Basophils Absolute Auto 100 /uL (0-100); Basophils Percent Auto 0.8 % (0-2); Eosinophils Absolute Auto 300 /uL (0-450); Eosinophils Percent Auto 3.5 % (2-4); Hematocrit 39.4 % (36-46); Lymphocytes Absolute Auto 2300 /uL (1100-4500); Lymphocytes Percent Auto 25.6 % (25-40); Mean Corpuscular HGB Conc 32.9 % (30-36); Mean Corpuscular Volume 85.3 fL (80-100); Monocytes Absolute Auto 700 /uL (0-900); Monocytes Percent Auto 7.7 % (3-14); Neutrophils Absolute Auto 5700 /uL (1500-7000); Neutrophils Percent Auto 62.4 % (50-75); Platelet Count 321 X10^3/uL (150-400); Red Blood Cell Count 4.62 X10^6/uL (4.0-5.2); White Blood Cell Count 9.1 X10^3/uL (4.5-11.0)
[2024-08-18 17:44] LABS: Alanine Aminotransferase 24 IU/L (<35); Albumin 4.4 g/dL (3.5-5.0); Albumin Globulin Ratio 1.5 (1.0-2.8); Alkaline Phosphatase 83 U/L (38-126); Aspartate Aminotransferase 26 IU/L (14-36); BUN Creatinine Ratio 22.2 (6-22); Bilirubin Total 0.6 mg/dL (0.2-1.3); Blood Urea Nitrogen 16 mg/dL (7-17); Calcium 9.3 mg/dL (8.4-10.2); Carbon Dioxide 25 mmol/L (22-32); Chloride 104 mmol/L (98-107); Estimated Glomerular Filt Rate > 60 mL/min (>60); Glucose 90 mg/dL (70-100); HEMOLYSIS 31 (0-50); Sodium 139 mmol/L (137-145); Total Protein 7.4 g/dL (6.3-8.2)
[2024-08-18 18:01] LABS: Free T3, Triiodothyronine Free 3.45 pg/mL (2.77-5.27)
[2024-08-18 18:15] LABS: Thyroid Stimulating Hormone 0.733 uIU/mL (0.47-4.68)
[2024-08-20 07:09] LABS: Sex Hormone Binding Globulin 19.5 nmol/L (24.6-122.0)
[2024-08-21 16:36] LABS: Testosterone, Free 2.2 pg/mL (0.0-4.2)
[2024-08-22 02:36] LABS: Estriol <0.1 ng/mL (.)
[2024-09-01 10:35] LABS: Cholesterol,Total 203
[2024-09-01 10:40] LABS: HDL Cholesterol 60
[2024-09-01 10:41] LABS: Triglycerides 110
[2024-09-01 10:42] LABS: VLDL Cholesterol Cal 20
[2024-09-01 10:43] LABS: LDL Cholesterol Cal 123
[2024-09-01 10:45] LABS: Cholesterol HDL Ratio 3.4
== END ==
PROVIDERS: PCP Family Medicine; Referring Provider Specialist; Visit Provider Family Medicine
DX: Z51.81 Encounter for therapeutic drug level monitoring (principal)
CPT/HCPCS: 36415; 80053; 80061; 82677; 84144; 84270; 84402; 84443; 84481; 85025

== ENCOUNTER → 2024-09-13 07:48 | Outpatient (CLI) | payer BC, SELFPAY ==
--- NOTE | 2024-09-13 07:50 | DI.MG.S_ITS ---
MM screening mammo BI: 09/13/2024. BI-RADS: 1 CLINICAL: 39-year old female for bilateral screening mammogram. Tyrer-Cuzick lifetime risk of 6.8%. No personal or first-degree family history of breast cancer. PRIOR EXAMS No prior examinations available. MAMMOGRAPHY TECHNIQUE: 2D and 3D (tomosynthesis) digital mammographic views obtained, with additional images as needed for full coverage. Current study was also evaluated with a Computer Aided Detection (CAD) system. DENSITY B. There are scattered areas of fibroglandular density. MAMMOGRAPHY FINDINGS Bilateral: No suspicious mass, asymmetry, microcalcification, or other abnormality seen. IMPRESSION: * No evidence of malignancy. RECOMMENDATIONS Bilateral * Annual screening mammography. OVERALL ASSESSMENT CATEGORY BI-RADS-1: Negative. [employer] recommends annual screening mammography beginning at age 40 for women with average risk of breast cancer. ELECTRONICALLY SIGNED: Nelson Escalona M.D. on 09/15/2024 at 10:46:08 AM PT Interpreting Station ID: [id number]
== END ==
PROVIDERS: PCP Family Medicine; Referring Provider Family Medicine; Visit Provider Family Medicine
DX: Z12.31 Encounter for screening mammogram for malignant neoplasm of breast (principal)
CPT/HCPCS: 77063; 77067

== ENCOUNTER → 2024-10-01 08:02 | Outpatient (CLI) | payer BC, SELFPAY ==
[2024-10-01 08:40] LABS: Add Manual Diff / Slide Review NO; Basophils Absolute Auto 100 /uL (0-100); Basophils Percent Auto 1.3 % (0-2); Eosinophils Absolute Auto 200 /uL (0-450); Eosinophils Percent Auto 4.8 % (2-4); Hematocrit 38.4 % (36-46); Hemoglobin 12.6 g/dL (12.0-16.0); Lymphocytes Absolute Auto 1500 /uL (1100-4500); Lymphocytes Percent Auto 29.1 % (25-40); Mean Corpuscular Hemoglobin 28.3 PG (26-34); Mean Corpuscular Volume 85.8 fL (80-100); Monocytes Absolute Auto 400 /uL (0-900); Monocytes Percent Auto 8.1 % (3-14); Neutrophils Absolute Auto 2900 /uL (1500-7000); Neutrophils Percent Auto 56.7 % (50-75); Platelet Count 307 X10^3/uL (150-400); Red Blood Cell Count 4.47 X10^6/uL (4.0-5.2); Red Cell Distribution Width 13.6 % (11.6-14.8); White Blood Cell Count 5.2 X10^3/uL (4.5-11.0)
[2024-10-01 08:52] LABS: Hemoglobin A1C% w Est Avg Glu 4.8 % (4.0-6.0)
[2024-10-01 09:05] LABS: Alanine Aminotransferase 21 IU/L (<35); Albumin 4.4 g/dL (3.5-5.0); Albumin Globulin Ratio 1.6 (1.0-2.8); Alkaline Phosphatase 75 U/L (38-126); Aspartate Aminotransferase 23 IU/L (14-36); BUN Creatinine Ratio 19.2 (6-22); Bilirubin Total 0.9 mg/dL (0.2-1.3); Blood Urea Nitrogen 14 mg/dL (7-17); C-Reactive Protein Quant < 0.5 mg/dL (<1.0); Calcium 9.4 mg/dL (8.4-10.2); Carbon Dioxide 27 mmol/L (22-32); Chloride 103 mmol/L (98-107); Cholesterol 218 mg/dL (140-199); Estimated Glomerular Filt Rate > 60 mL/min (>60); Globulin 2.8 g/dL (1.7-4.1); Glucose 87 mg/dL (70-99); HDL Cholesterol 70 mg/dL (40-60); HEMOLYSIS < 15 (0-50); LDL Cholesterol Calculated 130 mg/dL (<100); Magnesium 1.7 mg/dL (1.6-2.3); Potassium 4.3 mmol/L (3.4-5.1); Sodium 137 mmol/L (137-145); Total Protein 7.2 g/dL (6.3-8.2); Triglycerides 88 mg/dL (35-150)
[2024-10-01 09:16] LABS: Follicle Stimulating Hormone 6.45 mIU/mL; Progesterone, Total 2.77 ng/mL
[2024-10-02 07:37] LABS: C Peptide 2.8 ng/mL (1.1-4.4)
== END ==
LOC: LAB 08:03
PROVIDERS: PCP Family Medicine; Referring Provider Specialist; Visit Provider Specialist
DX: Z51.81 Encounter for therapeutic drug level monitoring (principal); N95.9 Unspecified menopausal and perimenopausal disorder; R68.82 Decreased libido; R53.83 Other fatigue; R73.09 Other abnormal glucose; E78.2 Mixed hyperlipidemia; I10 Essential (primary) hypertension; Z73.3 Stress, not elsewhere classified
CPT/HCPCS: 36415; 80053; 80061; 82670; 83001; 83036; 83525; 83735; 84144; 84482; 84681; 85025; 86140